=== PATIENT | female | born 1940 | race Caucasian/White ===

== ENCOUNTER 2024-04-11 15:26 | Emergency (ER) | payer MEDICARE, MEDICAID, SELFPAY ==
[2024-04-11] VITALS (15 sets, daily range): BP systolic 143–186; BP diastolic 61–88; PULSE 70–84; RESP 16–20; TEMP 36.8; O2SAT 95–98; BMI 31.4
--- NOTE | 2024-04-11 15:29 | ED_ITS ---
<Statement entered by Adrian Moeller MD - 04/11/24 21:09> I was consulted by the AR, and we discussed the complexity of the problems being addressed. I approved the treatment and management plan for this patient's care in the emergency department, thus performing a substantive portion of the medical decision making. Adrian Moeller MD Discharge Plan Disposition Patient Disposition: Xfer SNF Condition: Fair Prescriptions Prescriptions: No Action torsemide 20 mg tablet 20 mg PO DAILY Patient Comments: TAKE ONE TABLET BY MOUTH ONCE DAILY DIRECTED meloxicam 7.5 mg tablet 7.5 mg PO DAILY Patient Comments: TAKE ONE TABLET BY MOUTH ONCE DAILY amlodipine 5 mg tablet 5 mg PO DAILY Patient Comments: TAKE ONE TABLET BY MOUTH EVERY MORNING metformin 1,000 mg tablet 1,000 mg PO BID Qty: 180 3RF acetaminophen 500 mg capsule 500 mg PO Q6H PRN (Reason: fever or pain) 90 Days Qty: 90 0RF Gaviscon 95-358 mg/15 mL suspension 30 ml PO QPCHS MDD every 6 hours as needed Qty: 355 0RF loperamide 2 mg capsule 2 mg PO QID PRN (Reason: loose stool) Qty: 90 0RF GlucaGen HypoKit 1 mg recon soln 1 mg SQ Q20M MDD NEEDED PRN (Reason: hypoglycemia) Qty: 1 0RF Rx Instructions: until target blood sugar attained lactulose 10 gram/15 mL (15 mL) solution 30 ml PO DAILY PRN (Reason: constipation) Qty: 600 2RF aspirin [Aspirin Childrens] 81 mg tablet,chewable 81 mg PO DAILY Qty: 30 2RF buspirone 5 mg tablet 5 mg PO BID Qty: 60 2RF atorvastatin 80 mg tablet 80 mg PO HS Qty: 30 2RF carbidopa-levodopa 25-100 mg tablet 1 tab PO BID Patient Comments: TAKE ONE TABLET THREE TIMES DAILY carvedilol 6.25 mg tablet 6.25 mg PO BID Qty: 60 2RF Rx Instructions: must administer with a meal/food clopidogrel 75 mg tablet 75 mg PO DAILY Qty: 30 2RF celecoxib 100 mg capsule 100 mg PO DAILY Qty: 60 2RF pantoprazole 40 mg tablet,delayed release (DR/EC) 40 mg PO DAILY Qty: 30 2RF spironolactone 25 mg tablet 25 mg PO DAILY Qty: 90 3RF insulin glargine [Lantus Solostar U-100 Insulin] 100 unit/mL (3 mL) insulin pen 35 unit SQ HS Qty: 15 2RF gabapentin 600 mg tablet 600 mg PO TID Qty: 90 2RF Referrals Follow up/Referrals: Provider,Referral, [Primary Care Provider] - See instructions Activity Restrictions/Add. Instructions Additional Instructions/Restrictions: I recommend a referral to neurology for full evaluation/reevaluation of your features. Please follow-up with your PCP as soon as possible. Return to ER for any worsening signs or symptoms. Clinical Impressions Clinical Impression: Dyskinesia due to Parkinson disease Discharge ED Provider: Adrian Moeller General Adult HPI <LISSETH Odonnell - Last Filed: 04/11/24 20:56> General Chief complaint: Recheck/Abnormal Lab/Rx Stated complaint: tremors Time Seen by Provider: 04/11/24 15:29 History of Present Illness HPI narrative: Patient presents for fdc for evaluation of tremors. Patient possibly had a medication overdose with gabapentin and thus initially that was the reason for transfer. The overdose would have been getting the morning and midday doses of her gabapentin at the same time. But patient was also noted to have gross tremors fortunately we do not know what her normal baseline is. She does not have fine tremors they are actually more gross motor intention tremors and she is taking carbidopa levodopa as well as she is an insulin-dependent type 2 diabetic. Patient herself denies chest pain fever chills hemoptysis hematochezia melena nausea vomit diarrhea Related Data Home Medications Medication Instructions Recorded Confirmed amlodipine 5 mg tablet 5 mg PO DAILY 07/02/22 04/04/24 meloxicam 7.5 mg tablet 7.5 mg PO DAILY 07/02/22 04/04/24 torsemide 20 mg tablet 20 mg PO DAILY 07/02/22 04/04/24 carbidopa 25 mg-levodopa 100 mg 1 tab PO BID 02/09/24 04/04/24 tablet Previous Rx's Medication Instructions Recorded metformin 1,000 mg tablet 1,000 mg PO BID #180 tabs 02/01/24 acetaminophen 500 mg capsule 500 mg PO Q6H PRN fever or pain 90 02/09/24 days #90 caps aluminum hydrox-magnesium carb 95 30 ml PO QPCHS #355 mL 02/09/24 mg-358 mg/15 mL oral suspension (Gaviscon) aspirin 81 mg chewable tablet 81 mg PO DAILY #30 tabs 02/09/24 (Aspirin Childrens) atorvastatin 80 mg tablet 80 mg PO HS #30 tabs 02/09/24 buspirone 5 mg tablet 5 mg PO BID #60 tabs 02/09/24 carvedilol 6.25 mg tablet 6.25 mg PO BID #60 tabs 02/09/24 celecoxib 100 mg capsule 100 mg PO DAILY #60 caps 02/09/24 clopidogrel 75 mg tablet 75 mg PO DAILY #30 tabs 02/09/24 glucagon 1 mg solution for 1 mg SQ Q20M PRN hypoglycemia #1 ea 02/09/24 injection (GlucaGen HypoKit) lactulose 10 gram/15 mL (15 mL) 30 ml PO DAILY PRN constipation 02/09/24 oral solution #600 mL loperamide 2 mg capsule 2 mg PO QID PRN loose stool #90 02/09/24 caps pantoprazole 40 mg tablet,delayed 40 mg PO DAILY #30 tabs 02/09/24 release spironolactone 25 mg tablet 25 mg PO DAILY #90 tabs 02/22/24 insulin glargine 100 unit/mL (3 35 unit (0.35 mL) SQ HS #15 mL 03/14/24 mL) subcutaneous pen (Lantus Solostar U-100 Insulin) gabapentin 600 mg tablet 600 mg PO TID #90 tabs 03/21/24 Allergies Allergy/AdvReac Type Severity Reaction Status Date / Time No Known Allergies Allergy Verified 04/04/24 16:53 [facility] <LISSETH Odonnell - Last Filed: 04/11/24 20:56> [facility] Disclaimer: The information contained in this section may have been updated after the patient was seen, as this information can be updated by other users. Medical History Cerebrovascular accident (CVA) Parkinsons disease Hyperlipidemia CAD (coronary artery disease) Arthritis T2DM (type 2 diabetes mellitus) HTN (hypertension), benign Family History Other Cancer Social History Smoking Status: Current every day smoker alcohol intake: never current occupational status: retired Travel in the last 8 weeks: None <LISSETH Odonnell - Last Filed: 04/11/24 20:56> ROS Obtained: Yes Systems reviewed as appropriate & no additional complaints except as documented Physical Exam <LISSETH Odonnell - Last Filed: 04/11/24 20:56> General General appearance: alert and in no apparent distress Eye Eye exam: Present normal appearance and EOMI ENT ENT exam: Present normal exam, normal oropharynx, mucous membranes moist and other (Patient has severe presbycusis) Neck Neck exam: Present normal inspection Respiratory Respiratory exam: Present normal lung sounds bilaterally Cardiovascular Cardiovascular exam: Present regular rate, normal rhythm and normal heart sounds Abdominal Exam Abdominal exam: Present soft and normal bowel sounds; Absent tenderness Extremities Exam Extremities exam: Present normal inspection and full ROM; Absent tenderness Back Exam Back exam: Present normal inspection and full ROM Neurological Exam Neurological exam: Present alert, oriented X3, CN II-XII intact and other (Patient has gross tremors infrequently in all 4 extremities they are not present constantly. Very much resemble spasticity) Psychiatric Psychiatric exam: Present normal affect and normal mood Skin Skin exam: Present warm, dry and normal color Medical Decision Making <LISSETH Odonnell - Last Filed: 04/11/24 20:56> Medical Records Medical records reviewed: Yes I reviewed the patient's medical records. Priyank Inquiry Pt receiving controlled substance: No Vital Signs: 04/11/24 15:26 04/11/24 17:00 04/11/24 17:30 Temperature 98.3 F Temperature Source Oral Pulse Rate 71 Pulse Rate [Right] 70 Respiratory Rate 20 Blood Pressure 143/61 H 160/74 H Blood Pressure [Right Arm] 149/72 H Blood Pressure Mean 88 89 Blood Pressure Mean [Right Arm] 97 Blood Pressure Source [Right Arm] Automatic Cuff 02 Sat by Pulse Oximetry 98 97 Oxygen Delivery Method Room Air 04/11/24 18:00 04/11/24 18:30 04/11/24 19:00 Temperature Temperature Source Pulse Rate 80 81 Pulse Rate [Right] Respiratory Rate Blood Pressure 162/73 H 153/73 H 150/68 H Blood Pressure [Right Arm] Blood Pressure Mean 86 86 82 Blood Pressure Mean [Right Arm] Blood Pressure Source [Right Arm] 02 Sat by Pulse Oximetry 95 95 Oxygen Delivery Method 04/11/24 19:30 04/11/24 20:00 04/11/24 20:30 Temperature Temperature Source Pulse Rate 83 83 81 Pulse Rate [Right] Respiratory Rate 18 16 18 Blood Pressure 150/67 H 158/75 H 161/77 H Blood Pressure [Right Arm] Blood Pressure Mean Blood Pressure Mean [Right Arm] Blood Pressure Source [Right Arm] 02 Sat by Pulse Oximetry 96 96 95 Oxygen Delivery Method Room Air Room Air Room Air Lab Data Lab results reviewed: Yes I reviewed the patient's lab results. Lab Results 04/11/24 15:30: WBC 6.0, RBC 3.59 L, Hgb 10.9 L, Hct 32.1 L, MCV 89.6, MCH 30.4, MCHC 33.9, RDW 15.1, Plt Count 318, MPV 7.8, Neut % (Auto) 67.5, Lymph % (Auto) 21.8, Pepin % (Auto) 5.9, Eos % (Auto) 4.3, Baso % (Auto) 0.5, Neut # (Auto) 4.1, Lymph # (Auto) 1.3, Pepin # (Auto) 0.4, Eos # (Auto) 0.3, Baso # (Auto) 0.0, Sodium 137, Potassium 5.1, Chloride 109 H, Carbon Dioxide 22, Anion Gap 11.1, B UN 20 H, Creatinine 1.00, Estimated Creat Clear 53, Estimated GFR 53 L, Est GFR ( Amer) 64, Glucose 303 H, Calcium 9.6, Magnesium 1.4 L, Total Bilirubin 0.3, AST 26, ALT 16, Alkaline Phosphatase 147 H, Total Creatine Kinase 38, Total Protein 6.9, Albumin 3.9, Globulin 3.0, Albumin/Globulin Ratio 1.3, TSH 2.76, F ree T4 Index 2.3 L, Thyroxine (T4) 7.2, T3 Uptake 32 04/11/24 15:30 04/11/24 15:30 Orders (Tests/Meds): ED MEDICATIONS Discontinued Medications Generic Name Dose Route Start Last Admin Trade Name Freq PRN Reason Stop Dose Admin Acetaminophen 1,000 mg 04/11/24 15:31 04/11/24 15:50 Acetaminophen 1,000mg/100ml Vial IV 04/11/24 15:32 1,000 mg ONCE ONE Administration Lactated Ringer's 1,000 mls @ 999 mls/hr 04/11/24 15:31 04/11/24 15:49 Lactated Ringer's 1000 Ml Bag IV 04/11/24 16:31 999 mls/hr .Q1H1M ONE Administration Magnesium Sulfate 2 gm in 50 mls @ 50 mls/hr 04/11/24 16:16 04/11/24 17:29 Magnesium Sulfate 2gm/50ml Premix IV 04/11/24 17:15 50 mls/hr ONCE ONE Administration Ketorolac Tromethamine 15 mg 04/11/24 15:31 04/11/24 15:50 Ketorolac 30mg/Ml Vial IV 04/11/24 15:32 15 mg ONCE ONE Administration ORDERS Category Date Time Status CT chest wo con Stat Cat Scan 04/11/24 18:[address] facial bones wo con Stat Cat Scan 04/11/24 18:[address] head/brain wo con Stat Cat Scan 04/11/24 15:[address] soft tissue neck wo con Stat Cat Scan 04/11/24 18:42 Completed CBC w/Auto Diff [Complete Blood Count Auto Diff] Stat Lab 04/11/24 15:30 Completed CK [Creatine Kinase] Stat Lab 04/11/24 15:30 Completed CMP [Comprehensive Metabolic Panel] Stat Lab 04/11/24 15:30 Completed Magnesium Stat Lab 04/11/24 15:30 Completed Thyroid Panel Stat Lab 04/11/24 15:30 Completed Medical Decision Narrative: In summary patient is a 83-year-old female who presents to the emergency department for evaluation of muscle spasms/tremors. Patient is hemodynamically stable upon arrival, afebrile. Physical exam is remarkable for intermittent gross extremity jerking motions but no fine motor tremors noted. No focal neurologic deficits.. Differential diagnosis includes electrolyte imbalance versus parkinsonism versus tardive dyskinesia etc. Initial workup will be conducted with hematologic labs CT scan. Initial interventions include crystalloid bolus Toradol Tylenol. Initial workup reviewed by me shows TSH of 2.76 with a free T4 of 2.[address] scan of the head is remarkable via my informal interpretation of subcutaneous air around the face but not anywhere in the cranium. Repeat imaging of face neck and chest shows no subcutaneous air according to the radiologist or mediastinal air.. Upon repeat evaluation patient still has dyskinesia on intentional movements all 4 extremities but [place] Coma Score remains 15. Given this patient is appropriate for discharge back to the [facility] <Adrian Moeller MD - Last Filed: 04/11/24 19:02> Vital Signs: 04/11/24 15:26 04/11/24 17:00 04/11/24 17:30 Temperature 98.3 F Temperature Source Oral Pulse Rate 71 Pulse Rate [Right] 70 Respiratory Rate 20 Blood Pressure 143/61 H 160/74 H Blood Pressure [Right Arm] 149/72 H Blood Pressure Mean 88 89 Blood Pressure Mean [Right Arm] 97 Blood Pressure Source [Right Arm] Automatic Cuff 02 Sat by Pulse Oximetry 98 97 Oxygen Delivery Method Room Air 04/11/24 18:00 04/11/24 18:30 04/11/24 19:00 Temperature Temperature Source Pulse Rate 80 81 Pulse Rate [Right] Respiratory Rate Blood Pressure 162/73 H 153/73 H 150/68 H Blood Pressure [Right Arm] Blood Pressure Mean 86 86 82 Blood Pressure Mean [Right Arm] Blood Pressure Source [Right Arm] 02 Sat by Pulse Oximetry 95 95 Oxygen Delivery Method 04/11/24 19:30 04/11/24 20:00 04/11/24 20:30 Temperature Temperature Source Pulse Rate 83 83 81 Pulse Rate [Right] Respiratory Rate 18 16 18 Blood Pressure 150/67 H 158/75 H 161/77 H Blood Pressure [Right Arm] Blood Pressure Mean Blood Pressure Mean [Right Arm] Blood Pressure Source [Right Arm] 02 Sat by Pulse Oximetry 96 96 95 Oxygen Delivery Method Room Air Room Air Room Air Lab Data Lab Results 04/11/24 15:30: WBC 6.0, RBC 3.59 L, Hgb 10.9 L, Hct 32.1 L, MCV 89.6, MCH 30.4, MCHC 33.9, RDW 15.1, Plt Count 318, MPV 7.8, Neut % (Auto) 67.5, Lymph % (Auto) 21.8, Pepin % (Auto) 5.9, Eos % (Auto) 4.3, Baso % (Auto) 0.5, Neut # (Auto) 4.1, Lymph # (Auto) 1.3, Pepin # (Auto) 0.4, Eos # (Auto) 0.3, Baso # (Auto) 0.0, Sodium 137, Potassium 5.1, Chloride 109 H, Carbon Dioxide 22, Anion Gap 11.1, B UN 20 H, Creatinine 1.00, Estimated Creat Clear 53, Estimated GFR 53 L, Est GFR ( Amer) 64, Glucose 303 H, Calcium 9.6, Magnesium 1.4 L, Total Bilirubin 0.3, AST 26, ALT 16, Alkaline Phosphatase 147 H, Total Creatine Kinase 38, Total Protein 6.9, Albumin 3.9, Globulin 3.0, Albumin/Globulin Ratio 1.3, TSH 2.76, F ree T4 Index 2.3 L, Thyroxine (T4) 7.2, T3 Uptake 32 Orders (Tests/Meds): ED MEDICATIONS Discontinued Medications Generic Name Dose Route Start Last Admin Trade Name Trish PRN Reason Stop Dose Admin Acetaminophen 1,000 mg 04/11/24 15:31 04/11/24 15:50 Acetaminophen 1,000mg/100ml Vial IV 04/11/24 15:32 1,000 mg ONCE ONE Administration Lactated Ringer's 1,000 mls @ 999 mls/hr 04/11/24 15:31 04/11/24 15:49 Lactated Ringer's 1000 Ml Bag IV 04/11/24 16:31 999 mls/hr .Q1H1M ONE Administration Magnesium Sulfate 2 gm in 50 mls @ 50 mls/hr 04/11/24 16:16 04/11/24 17:29 Magnesium Sulfate 2gm/50ml Premix IV 04/11/24 17:15 50 mls/hr ONCE ONE Administration Ketorolac Tromethamine 15 mg 04/11/24 15:31 04/11/24 15:50 Ketorolac 30mg/Ml Vial IV 04/11/24 15:32 15 mg ONCE ONE Administration ORDERS Category Date Time Status CT chest wo con Stat Cat Scan 04/11/24 18:[address] facial bones wo con Stat Cat Scan 04/11/24 18:[address] head/brain wo con Stat Cat Scan 04/11/24 15:[address] soft tissue neck wo con Stat Cat Scan 04/11/24 18:42 Completed CBC w/Auto Diff [Complete Blood Count Auto Diff] Stat Lab 04/11/24 15:30 Completed CK [Creatine Kinase] Stat Lab 04/11/24 15:30 Completed CMP [Comprehensive Metabolic Panel] Stat Lab 04/11/24 15:30 Completed Magnesium Stat Lab 04/11/24 15:30 Completed Thyroid Panel Stat Lab 04/11/24 15:30 Completed ECG Data Tracing #1: Independently interpreted by me rate is 81, rhythm is regular, axis is normal, no ST elevation in anatomical contiguous leads, QTc 437 Critical Care <LISSETH Odonnell - Last Filed: 04/11/24 20:56> Critical Care Time Critical Care Time: No
[2024-04-11 15:43] LABS: Basophils % 0.5 % (0.1-2.0); Eosinophils # 0.3 K/mm3 (0.0-0.4); Eosinophils % 4.3 % (0.1-12.0); Hematocrit 32.1 % (37.0-47.0); Hemoglobin 10.9 g/dL (12.2-16.2); Lymphocytes # 1.3 K/mm3 (0.7-4.5); Lymphocytes % 21.8 % (10-50); Mean Corpuscular HGB Conc 33.9 g/dL (31.8-35.4); Mean Corpuscular Hemoglobin 30.4 pg (27.0-31.2); Mean Corpuscular Volume 89.6 fl (81-99); Mean Platelet Volume 7.8 fl (7.4-10.4); Monocytes # 0.4 K/mm3 (0.1-1.0); Monocytes % 5.9 % (1.7-9.3); Neutrophils # 4.1 K/mm3 (1.8-7.8); Neutrophils % 67.5 % (37.0-80.0); Platelet Count 318 K/mm3 (142-424); Red Blood Count 3.59 M/mm3 (4.20-5.40); Red Cell Distribution Width 15.1 % (11.5-17.5)
[2024-04-11] MEDS: LACTATED RINGERS 1000ML 1,000 ML 999 ML IV (15:49)
[2024-04-11] MEDS: ACETAMINOPHEN 1,000MG/100ML VIAL 1000 MG IV (15:50)
[2024-04-11] MEDS: KETOROLAC 30MG/ML VIAL 15 MG IV (15:50)
--- NOTE | 2024-04-11 15:56 | CT_ITS ---
FINAL REPORT CLINICAL HISTORY: Tremors FINDINGS: Axial images of the head were obtained without contrast. Coronal reformatted images were also obtained. This study was performed with techniques to keep radiation doses as low as reasonably achievable (ALARA). Individualized dose reduction techniques using automated exposure control or adjustment of mA and/or kV according to the patient''s size were employed. There is generalized age-appropriate atrophy. Periventricular low-attenuation areas are seen consistent with mild chronic ischemic changes. There is no evidence of intracranial hemorrhage or mass. There is no evidence of acute infarct. There is no evidence of shift of the midline structures. No skull abnormality is seen on the bone window images. There is left and anterior face soft tissue air of uncertain etiology but can be seen with penetrating injury. IMPRESSION: Atrophy and mild periventricular chronic ischemic changes. No acute intracranial abnormality identified. Soft tissue air as detailed above. Recommend clinical correlation. Reviewed, Interpreted and Dictated by Victor Hugo Loving III, MD Transcribed by Marlen Aguilar Authenticated and . [facility]
[2024-04-11 16:08] LABS: Chloride 109 mmol/L (98-107); Sodium 137 mmol/L (136-145)
[2024-04-11 16:09] LABS: Potassium 5.1 mmoL/L (3.5-5.1)
[2024-04-11 16:11] LABS: Alanine Aminotransferase 16 U/L (12-78); Albumin Level 3.9 g/dl (3.5-5.0); Albumin/Globulin Ratio 1.3 (1.1-1.8); Alkaline Phosphatase 147 U/L (38-126); Anion Gap 11.1 mEq/L (5-15); Aspartate Amino Transferase 26 U/L (14-36); Bilirubin,Total 0.3 mg/dl (0.2-1.3); Blood Urea Nitrogen 20 mg/dl (7-17); Calcium 9.6 mg/dl (8.4-10.2); Carbon Dioxide 22 mmol/L (22.0-30.0); Creatine Kinase 38 U/L (30-135); Creatinine Clearance Estimated 53 mL/min (50-200); Estimated Glomerular Filt Rate 53 ml/min (>60); GFR (African American) 64 ML/MIN (>60); Glucose 303 mg/dl (74-100); Total Protein,Serum 6.9 g/dl (6.3-8.2)
[2024-04-11 16:12] LABS: Magnesium 1.4 mg/dl (1.6-2.3)
[2024-04-11 16:42] LABS: Free Thyroxine Index 2.3 ug/dL (5.93-13.13); T4 (Thyroxine) 7.2 ug/dl (5.53-11.0); Triiodothryronine (T3) Uptake 32 % (23.5-40.5)
[2024-04-11 16:56] LABS: Thyroid Stimulating Hormone 2.76 uIU/mL (0.465-4.68)
[2024-04-11] MEDS: MAGNESIUM SULFATE IN WATER 2 GM/50 ML PIGGYBACK IV (17:29)
--- NOTE | 2024-04-11 18:42 | CT_ITS ---
PROCEDURE INFORMATION: Exam: CT Chest Without Contrast; Diagnostic Exam date and time: 04/11/2024 7:13 PM Age: 83 years old Clinical indication: Other: Subcutaneous air TECHNIQUE: Imaging protocol: Diagnostic computed tomography of the chest without contrast. Radiation optimization: All CT scans at this facility use at least one of these dose optimization techniques: automated exposure control; mA and/or kV adjustment per patient size (includes targeted exams where dose is matched to clinical indication); or iterative reconstruction. COMPARISON: CT SOFT TISSUE NECK WO CON 04/11/2024 7:11 PM FINDINGS: Lungs: Calcified granuloma within the right lower lobe. Minimal bibasilar atelectasis or scarring. No focal consolidations. Pleural spaces: Unremarkable. No pneumothorax. No pleural effusion. Heart: Normal. Coronary arteries: Moderate three-vessel coronary artery atherosclerotic calcification. Lymph nodes: Calcified right hilar lymph nodes, compatible with prior granulomatous disease. Vasculature: Atherosclerotic disease of the thoracic aorta, without aneurysm. Diaphragm: Small-sized hiatal hernia. Gallbladder and biliary ducts: Gallbladder surgically absent. Spleen: Splenic calcifications, compatible with prior granulomatous disease. Adrenal glands: 2 cm benign left adrenal adenoma. Kidneys and ureters: Partially visualized simple right renal cysts. Bones/joints: Degenerative changes of the acromioclavicular and glenohumeral joints, with joint space narrowing minimal osteophyte formation. Multilevel thoracic spine degenerative disc space narrowing and osteophyte formation. Soft tissues: Normal. IMPRESSION: 1. No acute thoracic abnormality. 2. No subcutaneous gas. COMMENTS: 1. Consistent with the [employer]'s Incidental Findings Committee white paper (J Am Reed Radiol 2017): For any incidental adrenal lesion greater than or equal to 1 cm but less than or equal to 4 cm classified in this report as benign, likely benign, or containing fat (including classification as an adenoma or myelolipoma), no follow-up imaging is recommended per consensus recommendations based on imaging criteria. Further lab evaluation could be pursued if warranted based on clinical findings. 2. Consistent with the [employer]'s Incidental Findings Committee white paper (J Am Reed Radiol 2018): Any incidental renal lesion less than 1 cm or classified as too small to characterize, or any incidental cystic renal lesion characterized as simple-appearing, is likely benign. No follow-up imaging is recommended for these lesions per consensus recommendations based on imaging criteria.
--- NOTE | 2024-04-11 18:42 | CT_ITS ---
PROCEDURE INFORMATION: Exam: CT Neck Without Contrast Exam date and time: 04/11/2024 7:11 PM Age: 83 years old Clinical indication: Other: Subcutaneous air TECHNIQUE: Imaging protocol: Computed tomography of the neck without contrast. Radiation optimization: All CT scans at this facility use at least one of these dose optimization techniques: automated exposure control; mA and/or kV adjustment per patient size (includes targeted exams where dose is matched to clinical indication); or iterative reconstruction. COMPARISON: CT FACIAL BONES WO CON 04/11/2024 7:06 PM FINDINGS: Salivary glands: Normal. Glands are normal in size. Pharynx: Unremarkable. No significant tonsillar enlargement. Prevertebral and retropharyngeal spaces: Unremarkable. Larynx: Unremarkable. Epiglottis is normal. Thyroid: Normal. No enlarged or calcified nodules. Trachea: Visualized trachea is unremarkable. Lungs: Unremarkable as visualized. Lymph nodes: Unremarkable. No lymphadenopathy. Bones/joints: Unremarkable. No acute fracture. Soft tissues: Unremarkable. No significant soft tissue swelling. IMPRESSION: No acute findings. No subcutaneous gas is identified
--- NOTE | 2024-04-11 18:42 | CT_ITS ---
PROCEDURE INFORMATION: Exam: CT Maxillofacial Without Contrast Exam date and time: 04/11/2024 7:06 PM Age: 83 years old Clinical indication: Other: Subcutaneous air TECHNIQUE: Imaging protocol: Computed tomography of the face without contrast. Radiation optimization: All CT scans at this facility use at least one of these dose optimization techniques: automated exposure control; mA and/or kV adjustment per patient size (includes targeted exams where dose is matched to clinical indication); or iterative reconstruction. COMPARISON: CT HEAD/BRAIN WO CON 04/11/2024 4:29 PM FINDINGS: Orbital cavities: Orbits are normal. Globes are unremarkable. Paranasal sinuses: Normal. No air-fluid levels. Bones: No acute fracture. Soft tissues: Unremarkable. IMPRESSION: No acute findings.
--- NOTE | 2024-04-11 18:54 | ECG_ITS ---
APPROVED REPORT Exam: Resting ECG HR:81 bpm ECG Measurements Heart Rate 81 AXES QRSd 126 QRS -84 QT 400 T 57 QTc 437 Conclusion Sinus tachycardia RIGHT BUNDLE BRANCH BLOCK [120+ ms QRS DURATION, UPRIGHT V1, 40+ ms S IN I/aVL/V4/V5/V6] LEFT ANTERIOR FASCICULAR BLOCK [QRS AXIS <= -45, QR IN I, RS IN II] ABNORMAL ECG Electronically signed by : ADONIS CARPENTER, 04/12/2024 08:03:52
--- NOTE | 2024-04-11 19:42 | PC.NURSE ---
rounded on pt at this time. pt given warm blanket. no other needs voiced.
--- NOTE | 2024-04-11 20:22 | PC.NURSE ---
rounded on pt at this time. pt voices no needs
[2024-04-11] MEDS: GABAPENTIN 300MG CAPSULE 600 MG PO (22:32)
[2024-04-11] MEDS: ACETAMINOPHEN 500MG TAB 1000 MG PO (22:32)
--- NOTE | 2024-04-11 23:37 | PC.NURSE ---
rounded on pt at this time. pt voices no needs
[2024-04-12] VITALS: BP 156/74; PULSE 67; O2SAT 96
--- NOTE | 2024-04-12 00:16 | PC.NURSE ---
rounded on pt, pt sleeping at this time .
--- NOTE | 2024-04-12 00:20 | PC.NURSE ---
[facility] EMS back in [facility], and aware of pt needing transfer back to [facility].
[2024-04-12 00:30] VITALS: BP 176/78; PULSE 75; O2SAT 94
[2024-04-12 00:55] VITALS: BP 176/78; PULSE 75; RESP 17; TEMP 36.9; O2SAT 93
== END 2024-04-12 00:56 ==
PROVIDERS: Physician Assistant; Emergency Provider Emergency Medicine
DX: G20.B1 Parkinson's disease with dyskinesia, without mention of fluctuations (principal); E11.65 Type 2 diabetes mellitus with hyperglycemia; F17.210 Nicotine dependence, cigarettes, uncomplicated; I11.9 Hypertensive heart disease without heart failure; I25.10 Atherosclerotic heart disease of native coronary artery without angina pectoris; E78.5 Hyperlipidemia, unspecified; Z86.73 Personal history of transient ischemic attack (TIA), and cerebral infarction without residual deficits; Z79.4 Long term (current) use of insulin; Z79.84 Long term (current) use of oral hypoglycemic drugs; E83.42 Hypomagnesemia
CPT/HCPCS: 70450; 70486; 70490; 71250; 80053; 82550; 83735; 84436; 84443; 84479; 85025; 93005; 96365; 96375; 99285; J0131; J1885; J3475; J7120

== ENCOUNTER 2024-06-07 20:10 | Outpatient (CLI) | payer MEDICARE, SELFPAY ==
[2024-06-07 20:23] LABS: Basophils # 0.1 K/mm3 (0-0.2); Basophils % 0.7 % (0.1-2.0); Eosinophils # 0.1 K/mm3 (0.0-0.4); Hematocrit 35.2 % (37.0-47.0); Lymphocytes # 0.9 K/mm3 (0.7-4.5); Lymphocytes % 12.6 % (10-50); Mean Corpuscular HGB Conc 31.3 g/dL (31.8-35.4); Mean Corpuscular Hemoglobin 29.2 pg (27.0-31.2); Mean Corpuscular Volume 93.3 fl (81-99); Mean Platelet Volume 7.9 fl (7.4-10.4); Monocytes # 0.6 K/mm3 (0.1-1.0); Monocytes % 8.4 % (1.7-9.3); Neutrophils # 5.6 K/mm3 (1.8-7.8); Neutrophils % 76.4 % (37.0-80.0); Platelet Count 313 K/mm3 (142-424); Red Blood Count 3.77 M/mm3 (4.20-5.40); Red Cell Distribution Width 14.4 % (11.5-17.5); White Blood Count 7.3 K/mm3 (4.8-10.8)
[2024-06-07 21:00] LABS: Albumin Level 3.8 g/dl (3.5-5.0); Chloride 106 mmol/L (98-107); Potassium 4.4 mmoL/L (3.5-5.1); Sodium 137 mmol/L (136-145)
[2024-06-07 21:03] LABS: Alanine Aminotransferase 16 U/L (12-78); Albumin/Globulin Ratio 1.4 (1.1-1.8); Alkaline Phosphatase 119 U/L (38-126); Anion Gap 9.4 mEq/L (5-15); Aspartate Amino Transferase 26 U/L (14-36); Bilirubin,Total 0.4 mg/dl (0.2-1.3); Blood Urea Nitrogen 25 mg/dl (7-17); Carbon Dioxide 26 mmol/L (22.0-30.0); Estimated Glomerular Filt Rate 43 ml/min (>60); GFR (African American) 52 ML/MIN (>60); Globulin 2.8 g/dL (1.3-3.2); Total Protein,Serum 6.6 g/dl (6.3-8.2)
[2024-06-07 21:04] LABS: Calcium 9.3 mg/dl (8.4-10.2); Glucose 197 mg/dl (74-100)
== END 2024-06-07 23:59 | disposition home or self-care (01) ==
LOC: LAB.DROPOF 20:13
PROVIDERS: PCP Family Medicine; Visit Provider Family Medicine
DX: E11.9 Type 2 diabetes mellitus without complications (principal); I69.351 Hemiplegia and hemiparesis following cerebral infarction affecting right dominant side; R13.12 Dysphagia, oropharyngeal phase; E78.5 Hyperlipidemia, unspecified; I10 Essential (primary) hypertension
CPT/HCPCS: 80053; 85025

== ENCOUNTER 2024-08-18 10:18 | Outpatient (CLI) | payer MEDICARE, SELFPAY ==
--- NOTE | 2024-08-18 10:22 | CA_ITS ---
FINAL REPORT TECHNIQUE: Color Doppler, duplex Doppler and akins scale sonography of the bilateral neck vasculature was performed. Velocities were measured in the carotid arteries. Stenosis evaluation based on velocity criteria. CLINICAL HISTORY: DIZZINESS, COMPARISON: None FINDINGS: The peak systolic velocity of the right common carotid artery is 85 cm/sec and internal carotid artery 95 cm/sec. The diastolic velocity in the internal carotid artery is 22 cm/sec. The ICA/CCA ratio is 1.2. Visually, a small amount of plaque is seen. These findings are consistent with less than 50% stenosis. The external carotid artery is patent. The right vertebral artery is patent with antegrade flow. The peak systolic velocity of the left common carotid artery is 79 cm/sec and internal carotid artery 183 cm/sec. The diastolic velocity in the internal carotid artery is 27 cm/sec. The ICA/CCA ratio is 2.6. Visually, a moderate amount of plaque is seen. These findings are consistent with less than 50% stenosis. The external carotid artery is patent. The left vertebral artery is patent with antegrade flow. IMPRESSION: 50 to 69% stenosis of the left carotid artery. Less than 50% stenosis of the right carotid artery. Antegrade flow in the vertebral arteries bilaterally. If indicated, CTA or catheter angiography could further evaluate. Reviewed, Interpreted and Dictated by Victor Hugo Loving III, MD Transcribed by Zahra Nash Authenticated and [facility]
== END 2024-08-18 23:59 | disposition home or self-care (01) ==
LOC: RT 10:19
PROVIDERS: PCP Family Medicine; Visit Provider Nurse Practitioner Family
DX: R42 Dizziness and giddiness (principal); I11.9 Hypertensive heart disease without heart failure; I25.10 Atherosclerotic heart disease of native coronary artery without angina pectoris
CPT/HCPCS: 93880

== ENCOUNTER 2024-12-25 08:31 | Outpatient (CLI) | payer MEDICARE, MEDICAID, SELFPAY ==
[2024-12-25 08:57] LABS: Glucose,Fasting 75 mg/dl (74-100)
== END 2024-12-25 23:59 | disposition home or self-care (01) ==
LOC: LAB.DROPOF 08:32
PROVIDERS: PCP Family Medicine; Visit Provider Family Medicine
DX: E11.9 Type 2 diabetes mellitus without complications (principal)
CPT/HCPCS: 36415; 82947

== ENCOUNTER 2025-01-22 07:23 | Outpatient (CLI) | payer MEDICARE, MEDICAID, SELFPAY ==
[2025-01-22 07:41] LABS: Basophils # 0.1 K/mm3 (0-0.2); Basophils % 0.6 % (0.1-2.0); Eosinophils # 1.1 Kmm3 (0.0-0.4); Eosinophils % 12.9 % (0.1-12.0); Hematocrit 30.1 % (37.0-47.0); Hemoglobin 9.3 g/dL (12.2-16.2); Lymphocytes # 1.5 K/mm3 (0.7-4.5); Lymphocytes % 17.6 % (10-50); Mean Corpuscular HGB Conc 30.9 g/dL (31.8-35.4); Mean Corpuscular Hemoglobin 24.5 pg (27.0-31.2); Mean Corpuscular Volume 79.4 fl (81-99); Mean Platelet Volume 8.6 fl (7.4-10.4); Monocytes # 0.6 K/mm3 (0.1-1.0); Monocytes % 7.5 % (1.7-9.3); Neutrophils # 5.1 K/mm3 (1.8-7.8); Neutrophils % 60.6 % (37.0-80.0); Nucleated Red Blood Cells # 0 10^3/uL; Nucleated Red Blood Cells % 0 %; Platelet Count 291 K/mm3 (142-424); Red Blood Count 3.79 M/mm3 (4.20-5.40); Red Cell Distribution Width 15.4 % (11.5-17.5); Red Cell Distribution Width-SD 44.1 fL; White Blood Count 8.4 K/mm3 (4.8-10.8)
[2025-01-22 08:24] LABS: Alanine Aminotransferase 10 U/L (12-78); Albumin Level 3.1 g/dl (3.5-5.0); Alkaline Phosphatase 109 U/L (38-126); Anion Gap 13.6 mEq/L (5-15); Aspartate Amino Transferase 20 U/L (14-36); Bilirubin,Total 0.2 mg/dl (0.2-1.3); Blood Urea Nitrogen 22 mg/dl (7-17); Calcium 9.2 mg/dl (8.4-10.2); Carbon Dioxide 23 mmol/L (22.0-30.0); Chloride 107 mmol/L (98-107); Chol/HDL Ratio 2.8 (1-3.5); Cholesterol 147 mg/dl (140-200); Estimated Glomerular Filt Rate 53 ml/min (>60); GFR (African American) 64 ML/MIN (>60); Glucose 130 mg/dl (74-100); HDL Cholesterol 53 mg/dl (40-60); Potassium 4.6 mmoL/L (3.5-5.1); Sodium 139 mmol/L (136-145); Total Protein,Serum 6.1 g/dl (6.3-8.2); Triglycerides 159 mg/dl (30-150); VLDL Cholesterol 32 mg/dL (0-40)
[2025-01-22 08:35] LABS: Direct LDL Cholesterol 50.53 mg/dL (100-129)
[2025-01-22 09:55] LABS: Hemoglobin A1C 7.8 % (4.0-6.0)
== END 2025-01-22 23:59 | disposition home or self-care (01) ==
PROVIDERS: PCP Family Medicine; Visit Provider Family Medicine
DX: E11.9 Type 2 diabetes mellitus without complications (principal); D64.9 Anemia, unspecified
CPT/HCPCS: 36415; 80053; 80061; 83036; 85025

== ENCOUNTER 2025-01-24 07:20 | Outpatient (CLI) | payer MEDICARE, MEDICAID, SELFPAY ==
[2025-01-24 07:56] LABS: Iron 34 ug/dL (37-170)
[2025-01-24 08:07] LABS: Total Iron Binding Capacity 392 ug/dL (265-497)
[2025-01-24 08:30] LABS: Ferritin 8.44 ng/ml (11.1-264)
== END 2025-01-24 23:59 | disposition home or self-care (01) ==
PROVIDERS: PCP Nurse Practitioner Family; Visit Provider Nurse Practitioner Family
DX: D64.9 Anemia, unspecified (principal)
CPT/HCPCS: 36415; 82728; 83540; 83550

== ENCOUNTER 2025-04-18 07:54 | Outpatient (CLI) | payer MEDICARE, MEDICAID, SELFPAY ==
--- OUTSIDE RECORDS SUMMARY | 2025-04-18 07:57 | XMS_ITS | Clinical Summary ---
Author Organization [facility] Address [address] [place] [address] Phone Care Team Providers Care Undergraduate Internship Name Role Phone Unavailable Primary Care Provider Unavailabl e Medications * This document contains information received from the source organization and may not represent a complete record from that organization. 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) Type 2 diabetes mellitus without complications ( HCC) Mixed hyperlipidemia Essential (primary) hypertension GERD (gastroesophageal reflux disease) Primary pulmonary hypertension (HCC) Social History Tobacco Use Types Packs/Day Years Used Date Smoking Tobacco: Former Cigarettes Tobacco Cessation:Counseling Given: Not Answered Alcohol Use Standard Drinks/Week Comments Never 0 (1 standard drink = 0.6 oz pur e alcohol) Comments Unknown Sex and Gender Information Value Date Recorded Sex Assigned at Not on file Legal Sex Female 3:03 PM EDT Gender Identity Not on file Sexual Orientation Not on file Obstetrics History Plan of Treatment Health Maintenance Due Date Last Done Comments Wellness Exam Medicare 1945 DTaP/TDaP/Td (1 - Tdap) 1961 Pneumococcal Vaccine 50+ (1 of 1 - PCV) 1992 Zoster (1 of 2) 1992 Bone Density Screening 2007 RSV or 60+ (1 - 1-d ose 75+ series) 2017 COVID-19 Vaccine ( - 2023-2 5 season) 2024 Influenza Vaccine (#1) 2025 Hepatitis B Vaccine Aged Out No longe r eligible based on patient's age to complete this topic Meningococcal B Vaccine Aged Out No l onger eligible based on patient's age to complete this topic Insurance [facility] KAI Rader [id number] MEDICARE [place] PART A AND B
[2025-04-18 08:41] LABS: Anion Gap 17.8 mEq/L (5-15); Blood Urea Nitrogen 39 mg/dl (7-17); Calcium 10.3 mg/dl (8.4-10.2); Carbon Dioxide 23 mmol/L (22.0-30.0); Chloride 102 mmol/L (98-107); Creatinine,Serum 1.30 mg/dl (0.52-1.04); Estimated Glomerular Filt Rate 39 ml/min (>60); GFR (African American) 47 ML/MIN (>60); Glucose 128 mg/dl (74-100); Potassium 4.8 mmoL/L (3.5-5.1); Sodium 138 mmol/L (136-145)
[2025-04-18 10:19] LABS: Hemoglobin A1C 9.6 % (4.0-6.0)
[2025-04-18 10:53] LABS: Hematocrit 37.8 % (37.0-47.0); Hemoglobin 12.5 g/dL (12.2-16.2); Immature Granulocytes % 1.4 %; Mean Corpuscular HGB Conc 33.1 g/dL (31.8-35.4); Mean Corpuscular Hemoglobin 27.8 pg (27.0-31.2); Mean Corpuscular Volume 84.2 fl (81-99); Nucleated Red Blood Cells % 0 %; Platelet Count 306 K/mm3 (142-424); Red Blood Count 4.49 M/mm3 (4.20-5.40); Red Cell Distribution Width-SD 53.5 fL; White Blood Count 9.1 K/mm3 (4.8-10.8)
[2025-04-18 12:10] LABS: Iron 66 ug/dL (37-170)
[2025-04-18 12:21] LABS: Total Iron Binding Capacity 345 ug/dL (265-497)
[2025-04-18 12:46] LABS: Ferritin 16.9 ng/ml (11.1-264)
== END 2025-04-18 23:59 | disposition home or self-care (01) ==
PROVIDERS: PCP Nurse Practitioner Family; Visit Provider Nurse Practitioner Family
DX: E11.9 Type 2 diabetes mellitus without complications (principal); D50.9 Iron deficiency anemia, unspecified
CPT/HCPCS: 36415; 80048; 82728; 83036; 83540; 83550; 85025

== ENCOUNTER 2025-04-28 10:50 | Emergency (ER) | payer MEDICARE, MEDICAID, SELFPAY ==
[2025-04-28] VITALS (13 sets, daily range): BP systolic 110–150; BP diastolic 44–61; PULSE 60–71; RESP 15–22; TEMP 36.6–36.8; O2SAT 92–97; BMI 33.7
--- NOTE | 2025-04-28 10:56 | ECG_ITS ---
APPROVED REPORT Exam: Resting ECG HR:65 bpm ECG Measurements Heart Rate 65 AXES CO 227 P 62 QRSd 138 QRS -79 QT 411 T 54 QTc 423 Conclusion SINUS RHYTHM WITH FIRST DEGREE AV BLOCK RIGHT BUNDLE BRANCH BLOCK [120+ ms QRS DURATION, UPRIGHT V1, 40+ ms S IN I/aVL/V4/V5/V6] LEFT ANTERIOR FASCICULAR BLOCK [QRS AXIS <= -45, QR IN I, RS IN II] POSSIBLE ANTERIOR MYOCARDIAL INFARCTION , OF INDETERMINATE AGE [30 ms Q WAVE IN V3/V4, OR R < 0.2 mV IN V4] ABNORMAL ECG UNCONFIRMED REPORT Electronically signed by : River Lozano, 04/28/2025 15:20:25
--- OUTSIDE RECORDS SUMMARY | 2025-04-28 10:57 | XMS_ITS | Clinical Summary ---
Author Organization 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
--- OUTSIDE RECORDS SUMMARY | 2025-04-28 10:57 | XMS_ITS | Clinical Summary ---
Author Organization [facility] Address [address] [place] [address] Care Team Providers Care Funeral Pre Arrangement Counselor Name Role Phone Fer Reyez MD Primary Care Provider [phone] Allergies No known active allergies Medications amLODIPine (NORVASC) 5 MG tablet Take 1 tablet by mouth Daily. Active pantoprazole (PROTONIX) 40 MG EC tablet Take 1 tablet by mouth Every Morning Before Breakfast. (Take while on Clopidogrel aka Plavix) 30 tablet 2 2 Active glucose blood test strip Use to check blood glucose 3-4 times per day 200 each 12 2 Active glucose monitor monitoring kit 1 each As Needed (to check blood glucose). 1 each 1 2 Active Insulin Syringe 29G X 1/2 0.5 ML misc Use to administer insulin two times per day 100 each 5 2 Active Lancets (onetouch ultrasoft) lancets Use to check blood glucose 3-4 times per day 200 each 12 2 Active busPIRone (BUSPAR) 5 MG tablet Take 1 tablet by mouth 2 (Two) Times a Day. Active carbidopa-levod opa ER (SINEMET CR) 25-100 MG per tablet Take 1 tablet by mouth 2 (Two) Times a Day. Active carvedilol (COREG) 6.25 MG tablet Take 1 tablet by mouth 2 (Two) Times a Day With Meals. Active insulin lispro protamine-insul in lispro (humaLOG 75-25) (75-25) 100 UNIT/ML suspension injection Inject 35-45 Units under the skin into the appropriate area as directed 2 (Two) Times a Day With Meals. 45 units in am 35 units in pm 4 Active gabapentin (NEURONTIN) 300 MG capsuleIndicati ons:Numbness of right hand,Type 2 diabetes mellitus with hyperglycemia, with long-term current use of insulin Take 2 capsules by mouth Every 12 (Twelve) Hours. 6 capsule 4 Active Additional Information Patient not taking.Reported on 12/05/2024 acetaminophen (TYLENOL) 500 MG tablet Take 1 tablet by mouth Every 6 (Six) Hours As Needed for Mild Pain. Active aluminum hydroxide-magne sium carbonate (GAVISCON) 95-358 MG/15ML suspension oral suspension Take by mouth 3 (Three) Times a Day With Meals. Active glucagon (GlucaGen HypoKit) 1 MG injection Infuse into a venous catheter 1 (One) Time. Active lactulose (CHRONULAC) 10 GM/15ML solution Take 30 mL by mouth 2 (Two) Times a Day As Needed. Active loperamide (IMODIUM) 2 MG capsule Take 1 capsule by mouth 4 (Four) Times a Day As Needed for Diarrhea. Active metFORMIN (GLUCOPHAGE) 500 MG tablet Take 1 tablet by mouth 2 (Two) Times a Day With Meals. Active celecoxib (CeleBREX) 100 MG capsule Take 1 capsule by mouth 2 (Two) Times a Day As Needed for Mild Pain. Active spironolactone (ALDACTONE) 25 MG tablet Take 1 tablet by mouth Daily. Active gabapentin (NEURONTIN) 600 MG tablet Take 1 tablet by mouth 3 (Three) Times a Day. Active insulin glargine (LANTUS, SEMGLEE) 100 UNIT/ML injection Inject 25 Units under the skin into the appropriate area as directed Daily. Active benzonatate (TESSALON) 100 MG capsule Take 1 capsule by mouth 3 (Three) Times a Day As Needed for Cough. Active empagliflozin (Jardiance) 25 MG tablet tablet Take by mouth Daily. Active Cholecalciferol 25 MCG (1000 UT) tablet Take 1 tablet by mouth Daily. Active atorvastatin (LIPITOR) 80 MG tablet Take 1 tablet by mouth Every Night. 4 Active Calcium Carbonate 1500 (600 Ca) MG tablet 5 Active aspirin (Humphrey Aspirin) 325 MG tablet Take 1 tablet by mouth Daily. 5 12/08/19 26 Active Active Problems Problem Noted Date Diagnosed Date History of stroke 09/04/2024 Left carotid stenosis 09/04/2024 Moderate malnutrition 01/21/2024 Essential hypertension 09/16/2022 Stroke 09/07/2022 Right sided weakness 09/05/2022 Tobacco abuse 09/05/2022 Type 2 diabetes mellitus wit h hyperglycemia, with long-term current use of insulin 09/05/2022 COVID-19 virus detected 09/05/2022 Resolved Problems Problem Noted Date Diagnosed Date Resolved Date AMS (altered mental status) 09/05/2022 09/16/2022 Elevated serum creatinine 09/05/2022 Hypomagnesemia 09/05/2022 09/16/2022 Hypokalemia 09/05/2022 09/16/2022 Family History Medical History Relation Name Comments No Known Problems Mother Relation Name Status Comments Father Mother Social History Tobacco Use Types Packs/Day Years Used Date Smoking Tobacco: Every Day Cigarettes Passive Smoke Exposure: Current Smokeless Tobacco: Never Tobacco Cessation:Ready to Q uit: No; Counseling Given: No Comments:Pt states she smokes 7 a day Alcohol Use Standard Drinks/Week Comments Not Currently 0 (1 standard drink = 0.6 oz pur e alcohol) OASIS D0700: Social Isolation Answer Da te Recorded Frequency of experiencing loneliness or isolatio n Rarely 11/11/2022 OASIS A1250: Transportation Answer Date Recorded Lack of Transportation (Medical) No 11/11/2022 Lack of Transportation (Non-Medical) No 11/11/2022 Patient Unable or Declines to Respond No 11/11/2022 OASIS B1300: Health Literacy Answer Daniel e Recorded Frequency of needing help to read materials from doctor or pharmacy Sometimes 11/11/2022 AUDIT-C Answer Date Recorded Q1: How often do you have a drink containing alcohol? Never 01/17/2024 Q2: How many drinks containi ng alcohol do you have on a typical day when you are drinking? Patient does not drink Q3: How often do you have si x or more drinks on one occasion? Never 01/17/2024 Abuse Screen Answer Date Recorded Feels Unsafe at Home or Work/School no 01/17/2024 Feels Threatened by Someone no 01/02 Does Anyone Try to Keep You From Having Contact with Others or Doing Things Outside Your Home? no 01/17/2024 Physical Signs of Abuse Present no 01/17/2024 Housing Stability Answer Date Recorded Current Living Arrangements apartment 01/02 Potentially Unsafe Housing Conditions none 01/18/2024 Disabilities Answer Date Recorded Difficulty Concentrating, Remembering or Making Decisions no 01/17/2024 Difficulty Managing Errands Independently yes 01/17/2024 Education Answer Date Recorded Help with school or training? Not on file Preferred Language Beninese 01/18/2024 PHQ-2 Answer Date Recorded Patient Health Questionnaire-2 Score 0 12/05/2024 Comments Unknown Sex and Gender Information Value Date Recorded Sex Assigned at Not on file Legal Sex Female 1:30 AM EST Gender Identity Not on file Sexual Orientation Not on file Last Filed Vital Signs Vital Sign Reading Time Taken Comments Blood Pressure 128/74 12/05/2024 10:56 AM EST Pulse 76 12/05/2024 10:56 AM EST Temperature 36.2 C (97.1 F) 12/05/2024 10:56 AM EST Respiratory Rate 15 04/28/2024 10:50 AM EDT Oxygen Saturation 98% 12/05/2024 10:56 AM EST Inhaled Oxygen Concentration - - Weight 88.5 kg (195 lb 3.2 oz) 12/05/2024 10:56 AM EST Height 154.9 cm (5' 0.98 ) 12/05/2024 10:[address] Body Mass Index 36.91 12/05/2024 10:56 AM EST Plan of Treatment Upcoming Encounters Date Type Department Care Team (Late st Contact Info) Description 06/05/2025 11:00 AM EDT Appointment [facility] [address] [place] [address] 06/07/2025 9:00 AM EDT Office Visit [facility] [address] [place] [address] Karin Chang, TEST DEPARTMENT HELPER [address] [facility] [address] [place] [address] Health Maintenance Due Date Last Done Comments DXA SCAN 1942 DIABETIC EYE EXAM 1952 DIABETIC FOOT EXAM 1952 URINE MICROALBUMIN-CREATININ E RATIO (uACR) 1952 TDAP/TD VACCINES (1 - Tdap) 1961 ZOSTER VACCINE (1 of 2) 1992 RSV Vaccine - Adults (1 - 1- dose 75+ series) 2017 ANNUAL WELLNESS VISIT 09/16/2022 COVID-19 Vaccine (3 - 2023-2 5 season) 2024 01/10/2021, 12/10/2020 HEMOGLOBIN A1C 07/18/2024 01/17/2024, 09/05/2022 LIPID PANEL 01/17/2025 01/18/2024, 09/05/2022 INFLUENZA VACCINE 07/04/2025 09/05/2020, , 08/10/2016, Additional history exists Pneumococcal Vaccine 50+ Completed 014, 06/15/2013, 07/19/2008 Procedures Procedure Name Priority Date/Time Associated Diagnosis Comments LIPID PANEL Routine 01/18/2024 5:43 AM EDT HEMOGLOBIN A1C Add-On 01/17/2024 10:40 AM EDT from Last 3 Months or Most Recently Relevant to Health Maintenance Results * (ABNORMAL) Lipid Panel (01/18/2024 5:43 AM EDT) Total Cholesterol 228(H) 0 - 200 mg/dL 01/18/2024 6:22 AM EDT [facility] Triglycerides 248(H) 0 - 150 mg/dL 01/18/2024 6:22 AM EDT [facility] HDL Cholesterol 43 40 - 60 mg/dL 01/18/2024 6:22 AM EDT [facility] LDL Cholesterol 140(H) 0 - 100 mg/dL 01/18/2024 6:22 AM EDT [facility] VLDL Cholesterol 45(H) 5 - 40 mg/dL 01/18/2024 6:22 AM EDT [facility] LDL/HDL Ratio 3.15 01/18/2024 6:22 AM EDT [facility] Blood Venipuncture / Unknown 01/18/2024 5:43 AM EDT 01/18/2024 5:53 AM EDT Narrative [facility] - 01/18/2024 6:22 AM EDT Cholesterol Reference Ranges (U.S. Department of Health and Human Services ATP III Classifications) Desirable <200 mg/dL Borderline High 200-239 mg/dL High Risk >240 mg/dL Triglyceride Reference Ranges (U.S. Department of Health and Human Services ATP III Classifications) Normal <150 mg/dL Borderline High 150-199 mg/dL High 200-499 mg/dL Very High >500 mg/dL HDL Reference Ranges (U.S. Department of Health and Human Services ATP III Classifications) Low <40 mg/dl (major risk factor for CHD) High >60 mg/dl ('negative' risk factor for CHD) LDL Reference Ranges (U.S. Department of Health and Human Services ATP III Classifications) Optimal <100 mg/dL Near Optimal 100-129 mg/dL Borderline High 130-159 mg/dL High 160-189 mg/dL Very High >189 mg/dL Tobi Loco PA-C LAB BLOOD ORDERABLES Final R esult [facility]
[address] [place] [address], * (ABNORMAL) Hemoglobin A1c (01/17/2024 10:40 AM EDT) Hemoglobin A1C 12.80(H) 4.80 - 5.60 % 01/17/2024 2:07 PM EDT [facility] Blood Venipuncture / Unknown 01/17/2024 10:40 AM EDT 01/17/2024 10:44 AM EDT Narrative [facility] - 01/17/2024 2:07 PM EDT Hemoglobin A1C Ranges: Increased Risk for Diabetes 5.7% to 6.4% Diabetes >= 6.5% Diabetic Goal < 7.0% us Yobany Avendano MD LAB BLOOD ORDERABLES Final Res ult [facility]
[address] [id number], from Last 3 Months or Most Recently Relevant to Health Maintenance Insurance [employer] MEDICARE() MEDICARE A & B MEDICAID [place] Advance Directives * No CPR (Do Not Attempt to Resuscitate) (Latest Code Status on File) Date Activated Date Inactivated Comments 01/17/2024 1:40 PM 01/21/2024 4:08 PM Question Answer Comments Code Status (Patient has no pulse and is not breathing): No CPR (Do Not Attempt to Resuscitate) Medical Interventions (Patie nt has pulse or is breathing): Limited Support Medical Intervention Limits: NO intubation (DNI) Level Of Support Discussed With: PatientNext of Kin (If No Surrogate) * CPR (Attempt to Resuscitate) Date Activated Date Inactivated Comments 09/19/2022 10:08 PM 01/17/2024 10:30 AM No physic norbert signature needed for this code status. Dann as Signed. * CPR (Attempt to Resuscitate) Date Activated Date Inactivated Comments 09/05/2022 5:26 AM 09/16/2022 12:33 PM Question Answer Comments Code Status (Patient has no pulse and is not breathing): CPR (Attempt to Resuscitate) Medical Interventions (Patie nt has pulse or is breathing): Full Support Level Of Support Discussed With: Patient Care Teams Funeral Pre Arrangement Counselor Relationship Specialty Start Date End Date Fer Reyez MD [facility] [place] [address] PCP - General Family Medicine 05/31/24
--- NOTE | 2025-04-28 11:25 | XR_ITS ---
PROCEDURE INFORMATION: Exam: XR Chest Exam date and time: 04/28/2025 11:29 AM Age: 84 years old Clinical indication: Pain; Other: Cp; Additional info: Chest pain TECHNIQUE: Imaging protocol: Radiologic exam of the chest. Views: 1 view. COMPARISON: CT CHEST WO CON 04/11/2024 7:13 PM FINDINGS: Lungs: Unremarkable. No consolidation. Pleural spaces: Unremarkable. No pleural effusion. No pneumothorax. Heart/Mediastinum: Unremarkable. No cardiomegaly. Bones/joints: Unremarkable. IMPRESSION: No acute findings.
[2025-04-28 11:31] LABS: Hematocrit 38.8 % (37.0-47.0); Hemoglobin 12.7 g/dL (12.2-16.2); Immature Granulocytes % 1.2 %; Mean Corpuscular HGB Conc 32.7 g/dL (31.8-35.4); Mean Corpuscular Hemoglobin 27.7 pg (27.0-31.2); Mean Corpuscular Volume 84.7 fl (81-99); Nucleated Red Blood Cells % 0 %; Platelet Count 316 K/mm3 (142-424); Red Blood Count 4.58 M/mm3 (4.20-5.40); Red Cell Distribution Width-SD 53.0 fL; White Blood Count 7.8 K/mm3 (4.8-10.8)
[2025-04-28 11:34] LABS: Chloride 105 mmol/L (98-107)
[2025-04-28 11:35] LABS: Albumin Level 4.0 g/dl (3.5-5.0); Potassium 4.5 mmoL/L (3.5-5.1); Sodium 136 mmol/L (136-145)
[2025-04-28 11:37] LABS: Alanine Aminotransferase 14 U/L (12-78); Aspartate Amino Transferase 25 U/L (14-36); Blood Urea Nitrogen 23 mg/dl (7-17); Creatinine Clearance Estimated 57 mL/min (50-200); Creatinine,Serum 1.10 mg/dl (0.52-1.04); Estimated Glomerular Filt Rate 48 ml/min (>60); GFR (African American) 58 ML/MIN (>60)
[2025-04-28 11:38] LABS: Albumin/Globulin Ratio 1.2 (1.1-1.8); Alkaline Phosphatase 120 U/L (38-126); Anion Gap 9.5 mEq/L (5-15); Bilirubin,Total 0.2 mg/dl (0.2-1.3); Calcium 10.1 mg/dl (8.4-10.2); Carbon Dioxide 26 mmol/L (22.0-30.0); Globulin 3.3 g/dL (1.3-3.2); Glucose 83 mg/dl (74-100); Total Protein,Serum 7.3 g/dl (6.3-8.2)
[2025-04-28 11:54] LABS: Troponin I < 0.01 ng/ml (0.00-0.034)
--- NOTE | 2025-04-28 12:20 | ED_ITS ---
<Statement entered by Melita Lozano MD - 04/28/25 14:35> I was consulted by the AR, and we discussed the complexity of the problems being addressed. I approved the treatment and management plan for this patient's care in the emergency department, thus performing a substantive portion of the medical decision making. Melita Lozano MD, PRIMO, FACEP Discharge Plan Disposition Patient Disposition: Home, Self-Care Condition: Good Prescriptions Prescriptions: No Action carvedilol 6.25 mg tablet 6.25 mg PO BID Rx Instructions: must administer with a meal/food amlodipine 10 mg tablet 10 mg PO DAILY Qty: 30 2RF ferrous sulfate 325 mg (65 mg iron) tablet 325 mg PO BID Qty: 60 0RF Januvia 50 mg tablet 50 mg PO DAILY hydrocodone-acetaminophen 5-325 mg tablet 1 tab PO DAILY Qty: 30 0RF calcium carbonate 600 mg calcium (1,500 mg) tablet 1,200 mg PO DAILY Qty: 180 3RF cholecalciferol (vitamin D3) 50 mcg (2,000 unit) capsule 50 mcg PO DAILY Qty: 90 3RF benzonatate 100 mg capsule 100 mg PO TID PRN (Reason: Cough) loperamide 2 mg capsule 2 mg PO Q4H PRN (Reason: loose stool) metformin 1,000 mg tablet 1,000 mg PO BID Qty: 180 3RF acetaminophen 500 mg capsule 500 mg PO Q6H PRN (Reason: fever or pain) 90 Days Qty: 90 0RF Gaviscon 95-358 mg/15 mL suspension 30 ml PO QPCHS MDD every 6 hours as needed Qty: 355 0RF GlucaGen HypoKit 1 mg recon soln 1 mg SQ Q20M MDD NEEDED PRN (Reason: hypoglycemia) Qty: 1 0RF Rx Instructions: until target blood sugar attained lactulose 10 gram/15 mL (15 mL) solution 30 ml PO DAILY PRN (Reason: constipation) Qty: 600 2RF buspirone 5 mg tablet 5 mg PO BID Qty: 60 2RF atorvastatin 80 mg tablet 80 mg PO HS Qty: 30 2RF carbidopa-levodopa 25-100 mg tablet 1 tab PO BID Patient Comments: TAKE ONE TABLET THREE TIMES DAILY celecoxib 100 mg capsule 100 mg PO DAILY Qty: 60 2RF pantoprazole 40 mg tablet,delayed release (DR/EC) 40 mg PO DAILY Qty: 30 2RF spironolactone 25 mg tablet 25 mg PO DAILY Qty: 90 3RF aspirin 325 mg tablet 325 mg PO DAILY Qty: 90 3RF Jardiance 25 mg tablet 25 mg PO DAILY Qty: 90 3RF diclofenac sodium [Voltaren Arthritis Pain] 1 % gel 2 g topical QID PRN (Reason: pain) Qty: 100 2RF Rx Instructions: apply to single elbow, wrist or hand; for hand includes palm/fingers/back of hand gabapentin 600 mg tablet 600 mg PO BID Qty: 60 5RF insulin glargine [Basaglar KwikPen U-100 Insulin] 100 unit/mL (3 mL) insulin pen 40 unit SQ BID Qty: 15 11RF Referrals Follow up/Referrals: Fer Reyez MD [Primary Care Provider, Family Practice] - See instructions Activity Restrictions/Add. Instructions Additional Instructions/Restrictions: Please return to the emergency department with any worsening signs or symptoms, please follow-up with your family doctor and recreation therapy aides teacher in the coming days/weeks, continue take all your medication as prescribed. Clinical Impressions Clinical Impression: Chest pain due to GERD, Incidental pulmonary nodule Instructions Patient Instructions: DI for Atypical Chest Pain, DI for Heartburn, DI for Pulmonary Nodule Print Language Print Language: Greenlandic Discharge ED Provider: Melita Lozano General Adult HPI General Chief complaint: Chest Pain Stated complaint: Chest Pain Time Seen by Provider: 04/28/25 12:11 Mode of Arrival: EMS Source of Information: Patient Description of Symptoms (Recalled from ER Triage Doc. by RN): she began having pain in her chest, back, neck and shoulders about 0600 this morning. Also felt nauseaous, which she states is unusual for her. States she felt fine last evening when she went to bed. Did not eat breakfast or take her morning medications. History of Present Illness HPI narrative: 84-year-old female presents to the emergency department via EMS from [facility], with some chest pain that she describes as burning it is substernal, accompanied by some nausea, no vomiting, no diarrhea, does admit to constipation, denies any urinary type symptomatology, admits shortness of breath at times, no chest pain or shortness of breath currently at my assessment at the bedside, denies any fever chills, sore throat, no real abdominal pain, she is current of a day smoker, denies any alcohol or drug use, patient has other past medical history consistent with osteopenia, iron deficiency anemia, CAD, hyperlipidemia, T2DM, onychomycosis, GERD, presents disease. Initial triage vitals are unremarkable. Onset (ago): hour(s) Related Data Home Medications ?Medication ?Instructions ?Recorded ?Confirmed carbidopa 25 mg-levodopa 100 mg 1 tab PO BID 02/09/24 04/28/25 tablet benzonatate 100 mg capsule 100 mg PO TID PRN Cough 07/2704/28/25 loperamide 2 mg capsule 2 mg PO Q4H PRN loose stool 09/12/24 04/28/25 carvedilol 6.25 mg tablet 6.25 mg PO BID 11/21/2404/04 sitagliptin phosphate 50 mg tablet 50 mg PO DAILY 12/0304/28/25 (Januvia) Previous Rx's ?Medication ?Instructions ?Recorded metformin 1,000 mg tablet 1,000 mg PO BID #180 tabs acetaminophen 500 mg capsule 500 mg PO Q6H PRN fever o r pain 90 02/09/24 days #90 caps aluminum hydrox-magnesium carb 95 30 ml PO QPCHS #355 mL 02/09/24 mg-358 mg/15 mL oral suspension (Gaviscon) atorvastatin 80 mg tablet 80 mg PO HS #30 tabs 4 buspirone 5 mg tablet 5 mg PO BID #60 tabs 4 celecoxib 100 mg capsule 100 mg PO DAILY #60 caps 05/27 glucagon 1 mg solution for 1 mg SQ Q20M PRN hypoglycem ia #1 ea 02/09/24 injection (GlucaGen HypoKit) lactulose 10 gram/15 mL (15 mL) 30 ml PO DAILY PRN con stipation 02/09/24 oral solution #600 mL pantoprazole 40 mg tablet,delayed 40 mg PO DAILY #30 t abs 02/09/24 release spironolactone 25 mg tablet 25 mg PO DAILY #90 tabs aspirin 325 mg tablet 325 mg PO DAILY #90 tabs calcium carbonate 1,200 mg (2 x 600 mg calcium 07/05/24 (1,500 mg)) PO DAILY #180 tabs cholecalciferol (vitamin D3) 50 50 mcg PO DAILY #90 ca ps 07/05/24 mcg (2,000 unit) capsule empagliflozin 25 mg tablet 25 mg PO DAILY #90 tabs (Jardiance) amlodipine 10 mg tablet 10 mg PO DAILY #30 tabs 11/04 05/28 ferrous sulfate 325 mg (65 mg 325 mg PO BID #60 tabs 0 01/24/25 iron) tablet diclofenac sodium 1 % topical gel 2 g topical QID PRN pain #100 grams 03/27/25 (Voltaren Arthritis Pain) gabapentin 600 mg tablet 600 mg PO BID #60 tabs 04/18 insulin glargine 100 unit/mL (3 40 unit (0.4 mL) SQ BI D #15 mL 04/19/25 mL) subcutaneous pen (Basaglar KwikPen U-100 Insulin) hydrocodone 5 mg-acetaminophen 325 1 tab PO DAILY #30 tabs 04/24/25 mg tablet Allergies Allergy/AdvReac Type Severity Reaction Status Date / Time No Known Allergies Allergy Verified 04/28/25 13:31 [facility] Disclaimer: The information contained in this section may have been updated after the patient was seen, as this information can be updated by other users. Medical History Anemia Cigarette smoker Left hip pain Knee pain COVID-19 Right hip pain Cerebrovascular accident (CVA) Parkinsons disease Hyperlipidemia CAD (coronary artery disease) Arthritis T2DM (type 2 diabetes mellitus) HTN (hypertension), benign Surgical History History of cataract surgery Family History Other Cancer Social History Smoking Status: Never smoker alcohol intake: never current occupational status: retired Travel in the last 8 weeks?: None Have you lived/traveled outside [place] in past 30 days?: No Contact w/someone who lives/traveled outside [place] past 30 days?: No Exposure to someone with infectious disease in past 14 days?: No Do you have a fever (greater than 100.4 F or 38 C)?: No Have you tested positive for COVID-19?: No Exposed to someone with COVID-19 in past 14 days?: No Do you have a sore throat?: No Do you have a cough?: No Do you have any weakness?: No Do you have any diarrhea?: No Are you experiencing any unusual bleeding?: No Do you have any muscle aches/pain?: No Do you have any abdominal pain?: No Are you experiencing loss of taste or smell?: No Other Medical History Have you received the Pneumonia Vaccine: Yes (01/10/25) ROS Obtained: Yes All systems reviewed & no additional complaints except as documented Physical Exam General General appearance: alert and in no apparent distress Head Head exam: atraumatic and normocephalic Eye Eye exam: Present PERRL and EOMI ENT ENT exam: Present mucous membranes moist Neck Neck exam: Present normal inspection Chest Chest inspection: Present normal inspection and symmetric chest wall rise Respiratory Respiratory exam: Present normal lung sounds bilaterally; Absent respiratory distress Cardiovascular Cardiovascular exam: Present regular rate and normal rhythm Abdominal Exam Abdominal exam: Present soft; Absent distention, tenderness, guarding, rebound or rigidity Extremities Exam Extremities exam: Present normal inspection Neurological Exam Neurological exam: Present alert and oriented X3 Psychiatric Psychiatric exam: Present normal affect Skin Skin exam: Present warm and dry Medical Decision Making Medical Records Medical records reviewed: Yes I reviewed the patient's medical records. Screening: Per USPSTF and CDC recommendations, given the prevalence of disease in our region, it is our hospital?s policy to screen for HIV and viral Hepatitis for all patients aged 18 and over and those with ongoing risk factors. Priyank Inquiry Pt receiving controlled substance: No Priyank was queried for this patient: No Vital Signs: 04/28/25 10:54 04/28/25 10:59 04/28/25 11:01 Temperature 98 F Temperature Source Oral Pulse Rate 68 67 Pulse Rate [Right Brachial] 67 Respiratory Rate 17 21 Blood Pressure 150/59 H 139/59 L Blood Pressure [Right Arm] 139/59 L Blood Pressure Mean Blood Pressure Mean [Right Arm] 85 Blood Pressure Source [Right Arm] Automatic Cuff Blood Pressure Position [Right Arm] Supine 02 Sat by Pulse Oximetry 95 95 95 Oxygen Delivery Method Room Air Room Air Room Air 04/28/25 11:30 04/28/25 11:31 04/28/25 12:01 Temperature Temperature Source Pulse Rate 65 64 65 Pulse Rate [Right Brachial] Respiratory Rate 18 18 18 Blood Pressure 137/46 L 137/46 L 120/44 L Blood Pressure [Right Arm] Blood Pressure Mean 79 75 Blood Pressure Mean [Right Arm] Blood Pressure Source [Right Arm] Blood Pressure Position [Right Arm] 02 Sat by Pulse Oximetry 97 95 96 Oxygen Delivery Method 04/28/25 12:31 04/28/25 13:01 Temperature Temperature Source Pulse Rate 66 66 Pulse Rate [Right Brachial] Respiratory Rate 18 15 Blood Pressure 136/57 L 130/56 L Blood Pressure [Right Arm] Blood Pressure Mean Blood Pressure Mean [Right Arm] Blood Pressure Source [Right Arm] Blood Pressure Position [Right Arm] 02 Sat by Pulse Oximetry 96 93 L Oxygen Delivery Method Room Air Room Air Lab Data Lab results reviewed: Yes I reviewed the patient's lab results. Lab Results 04/28/25 10:41: WBC 7.8, RBC 4.58, Hgb 12.7, Hct 38.8, MCV 84.7, MCH 27.7, MCHC 32.7, RDW 17.2, Plt Count 316, MPV 8.8, Neut % (Auto) 67.1, Lymph % (Auto) 20.5, [place] % (Auto) 7.9, Eos % (Auto) 2.7, Baso % (Auto) 0.6, Neut # (Auto) 5.2, Lymph # (Auto) 1.6, [place] # (Auto) 0.6, Eos # (Auto) 0.2, Baso # (Auto) 0.1, D-Dimer 1.02 H, Sodium 136, Potassium 4.5, Chloride 105, Carbon Dioxide 26, Anion Gap 9.5, BUN 23 H, Creatinine 1.10 H, Estimated Creat Clear 57, Estimated GFR 48 L, Est GFR ( Amer) 58 L, Glucose 83, Calcium 10.1, Total Bilirubin 0.2, AST 25, ALT 14, Alkaline Phosphatase 120, Troponin I < 0.01, Total Protein 7.3, Albumin 4.0, Globulin 3.3 H, Albumin/Globulin Ratio 1.2 04/28/25 13:10: Troponin I < 0.01 04/28/25 10:41 04/28/25 10:41 Orders (Tests/Meds): ED MEDICATIONS Discontinued Medications Generic Name Dose Route Start Last Admin Trade Name Freq PRN Reason Stop Dose Admin Belladonna Alkaloids 60 ml 04/28/25 12:29 04/28/25 12:40 Belladonna Alkaloids 60 Ml Ml PO 04/28/25 12:30 60 ml ONCE ONE Administration Iopamidol 80 ml 04/28/25 13:42 04/28/25 13:43 Iopamidol-370 (76%);100ml Bottle IV 04/28/25 13:43 80 ml ONCE ONE Administration Sodium Chloride 10 ml 04/28/25 13:42 04/28/25 13:43 Sodium Chloride 0.9% 10ml Syr (Rad Only) IV 04/28/25 13:43 10 ml ONCE ONE Administration Sodium Chloride 50 ml 04/28/25 13:42 04/28/25 13:43 0.9 % Sodium Chloride 50 Ml Vial IV 04/28/25 13:43 50 ml ONCE ONE Administration ORDERS Category Date Time Status CT angio chest PE protocol Stat Cat Scan 04/28/25 13:26 Completed XR chest portable Stat Exams 04/28/25 11:25 Completed Complete Blood Count Auto Diff Stat Lab 04/28/25 10:41 Completed Comprehensive Metabolic Panel Stat Lab 04/28/25 10:41 Completed D-Dimer Stat Lab 04/28/25 10:41 Completed Troponin I Q3H Lab 04/28/25 13:10 Completed Troponin I Q3H Lab 04/28/25 17:30 Ordered Troponin I Stat Lab 04/28/25 10:41 Completed Medical Decision Narrative: 84-year-old female presents to the emergency department with chest pain nausea, differential diagnosis include but not limited to ACS, PE, cardiac arrhythmia, electrolyte disturbance, gastritis, GERD, costochondritis, pneumonia, pneumothorax, among others. I discussed this patient's case with the attending physician Dr. Lozano Will obtain basic laboratory studies, CXR, troponin, D-dimer, EKG, will give GI cocktail for patient's symptomatology. CBC unremarkable Initial troponin is within normal limits, CMP is noted for elevated creatinine BUN/NUNU, however appears to be in line with the patient's baseline, thus this likely acute on chronic kidney injury. I reviewed the patient's chest x-ray along the corresponding radiologic report, no acute findings. D-dimer is elevated at 1.02, thus years criteria cannot be utilized to rule out PE, will obtain CTA chest with without contrast PE protocol. Subsequent troponin is within normal limits at less than 0.01 I reviewed the patient's CTA chest with and without contrast PE protocol, no evidence of pulmonary embolus to the segmental level, no aneurysm of the aorta, no dissection of the aorta, stable 6.3 mm groundglass pulmonary nodule right middle lobe, recommend CT chest in 6 to 12 months, bibasilar opacities may represent atelectasis or pneumonia. I discussed the results with the patient at bedside, patient is in agreement with the current discharge plan/treatment plan, currently no chest pain/burning at this time, thought to be more of a gastritis/GERD picture, patient is on PPI and calcium carbonate, [facility], currently chest pain-free, has remained hemodynamically stable throughout her time in the emergency room, negative CTA and negative troponins, negative EKG, patient given strict ED return precautions, patient will keep follow-up with PCP and pulmonology. Critical Care Critical Care Time Critical Care Time: No
[2025-04-28] MEDS: BELLADONNA ALKALOIDS 60 ML ML PO (12:40)
[2025-04-28 13:16] LABS: D-Dimer 1.02 ug/mL (0.0-0.5)
--- NOTE | 2025-04-28 13:26 | CT_ITS ---
PROCEDURE INFORMATION: Exam: CTA Chest With Contrast Exam date and time: 04/28/2025 1:43 PM Age: 84 years old Clinical indication: Pain; Chest pressure; Additional info: Cp, elevated d-dimer TECHNIQUE: Imaging protocol: Computed tomographic angiography of the chest with contrast. Exam focused on the arteries. 3D rendering (Not supervised by radiologist): MIP and/or 3D reconstructed images were created by the technologist. Radiation optimization: All CT scans at this facility use at least one of these dose optimization techniques: automated exposure control; mA and/or kV adjustment per patient size (includes targeted exams where dose is matched to clinical indication); or iterative reconstruction. Contrast material: ISOVUE; Contrast volume: 80 ml; Contrast route: INTRAVENOUS (IV); COMPARISON: CT CHEST WO CON 04/11/2024 7:13 PM FINDINGS: Pulmonary arteries: No evidence of pulmonary embolus to the segmental level. Aorta: No aneurysm of the aorta. No dissection of the aorta. Lungs: Stable 6.3 mm ground-glass pulmonary nodule right middle lobe series 5, image 63.. Bibasilar opacities may represent atelectasis or pneumonia.. Pleural spaces: Unremarkable. No pneumothorax. No pleural effusion. Heart: Unremarkable. No cardiomegaly. No pericardial effusion. Coronary arteries: Coronary artery calcifications may indicate coronary artery disease. Lymph nodes: Unremarkable. No enlarged lymph nodes. Gallbladder and biliary ducts: Cholecystectomy Adrenal glands: Left adrenal adenoma measures 7 Hounsfield units and 2.3 x 1.7 cm. . No follow-up imaging recommended . Kidneys: 5.5 cm simple cyst right kidney. Additional 5 cm simple cyst right kidney . No follow-up imaging recommended . Bones/joints: Unremarkable. No acute fracture. Soft tissues: Unremarkable. IMPRESSION: 1. No evidence of pulmonary embolus to the segmental level. 2. No aneurysm of the aorta. 3. No dissection of the aorta. 4. Stable 6.3 mm ground-glass pulmonary nodule right middle lobe series 5, image 63.. Recommend CT Chest at 6-12 months to confirm persistence of the nodule, then CT Chest at 3 years and 5 years. (Reference: Rolando) References: Rolando Hammer, et al. Guidelines for Management of Incidental Pulmonary Nodules Detected on CT Images: From the Fleischner Society 2017. Radiology. 2017;284(1):228-243. 5. Bibasilar opacities may represent atelectasis or pneumonia.. COMMENTS: 1. Consistent with the [employer]'s Incidental Findings Committee white paper (J Am Reed Radiol 2017): Any incidental adrenal lesion less than 1 cm is likely benign. No follow-up imaging is recommended for these lesions per consensus recommendations based on imaging criteria. Further lab evaluation could be pursued if warranted based on clinical findings. 2. Consistent with the [employer]'s Incidental Findings Committee white paper (J Am Reed Radiol 2018): Any incidental renal lesion less than 1 cm or classified as too small to characterize, or any incidental cystic renal lesion characterized as simple-appearing, is likely benign. No follow-up imaging is recommended for these lesions per consensus recommendations based on imaging criteria.
[2025-04-28] MEDS: IOPAMIDOL-370 (76%);100ML BOTTLE 80 ML IV (13:43)
[2025-04-28] MEDS: SODIUM CHLORIDE 0.9% 10ML SYR (RAD ONLY) 10 ML IV (13:43)
[2025-04-28] MEDS: 0.9 % SODIUM CHLORIDE 50 ML VIAL IV (13:43)
[2025-04-28 13:51] LABS: Troponin I < 0.01 ng/ml (0.00-0.034)
--- NOTE | 2025-04-28 15:07 | PC.NURSE ---
[facility]
== END 2025-04-28 16:02 | disposition home or self-care (01) ==
PROVIDERS: Physician Assistant; Emergency Provider Student in an Organized Health Care Education/Training Program; PCP Family Medicine
DX: R07.89 Other chest pain (principal); K21.9 Gastro-esophageal reflux disease without esophagitis; R91.1 Solitary pulmonary nodule; F17.210 Nicotine dependence, cigarettes, uncomplicated; I10 Essential (primary) hypertension; E78.5 Hyperlipidemia, unspecified; E11.9 Type 2 diabetes mellitus without complications; Z86.79 Personal history of other diseases of the circulatory system
CPT/HCPCS: 71045; 71275; 80053; 84484; 85025; 85378; 93005; 99285; Q9967

== ENCOUNTER 2025-08-03 09:04 | Outpatient (CLI) | payer MEDICARE, MEDICAID, SELFPAY ==
--- OUTSIDE RECORDS SUMMARY | 2025-06-05 11:00 | XMS_ITS | Encounter Summary ---
Author Organization [facility] Address [address] [place] [address] Care Team Providers Care Chiller Tender Name Role Phone Fer Reyez MD Primary Care Provider [phone] Reason for Referral * Diagnostic Imaging (Routine) - Closed Specialty Diagnoses / Procedures Referred By Yoselyn wilder Referred To Contact Diagnoses Left carotid stenosis Procedures Duplex Carotid Ultrasound CAR Karin Chang APRN [address] [place] [address] Phone: tel: fax: [address] [address] Phone: tel: Referral ID Status Reason Start Date Expiration Date Visits Re quested Visits Authorized [id number] Closed 12/07/2024 12/07/2025 1 1 Reason for Visit * Diagnostic Imaging (Routine) - Closed Specialty Diagnoses / Procedures Referred By Chanceac t Referred To Contact Diagnoses Left carotid stenosis Procedures Duplex Carotid Ultrasound CAR Karin Chang APRN [address] [place] [address] Phone: tel: fax: [facility] [address] [place] [address] Phone: tel: Referral ID Status Reason Start Date Expiration Date Visits Re quested Visits Authorized [id number] Closed 12/07/2024 12/07/2025 1 1 Encounter Details Date Type Department Care Team (Late st Contact Info) Description 06/05/2025 11:00 AM EDT - 06/05/2025 11:59 PM EDT Hospital Encounter [facility] [address] [facility] [address] [place] [address] Karin Chang, SIGN ERECTOR AND REPAIRER [address] [place] [address] Left carotid stenosis Discharge Disposition: Home or Self Care Social History Tobacco Use Types Packs/Day Years Used Date Smoking Tobacco: Every Day Cigarettes Passive Smoke Exposure: Current Smokeless Tobacco: Never Comments:Pt states she smoke s 7 a day Alcohol Use Standard Drinks/Week [...] or training? Not on file Preferred Language Croatian 01/18/2024 PHQ-2 Answer Date Recorded Patient Health Questionnaire-2 Score 0 12/05/2024 Comments Unknown Sex and Gender Information Value Date Recorded Sex Assigned at Not on file Legal Sex Female 1:30 AM EST Gender Identity Not on file Sexual Orientation Not on file documented as of this encounter Last Filed Vital Signs Vital Sign Reading Time Taken Comments Blood Pressure - - Pulse - - Temperature - - Respiratory Rate - - Oxygen Saturation - - Inhaled Oxygen Concentration - - Weight 88.5 kg (195 lb 3.2 oz) 06/05/2025 11:49 AM EDT Height 154.9 cm (5' 0.98 ) 06/05/2025 11:49 AM E DT Body Mass Index 36.91 06/05/2025 11:49 AM EDT documented in this encounter Medications at Time of Discharge acetaminophen (TYLENOL) 500 MG tablet Take 1 tablet by mouth Every 6 (Six) Hours As Needed for Mild Pain. aluminum hydroxide-magnes ium carbonate (GAVISCON) 95-358 MG/15ML suspension oral suspension Take by mouth 3 (Three) Times a Day With Meals. amLODIPine (NORVASC) 5 MG tablet Take 1 tablet by mouth Daily. aspirin (Humphrey Aspirin) 325 MG tablet Take 1 tablet by mouth Daily. 12/07/2024 atorvastatin (LIPITOR) 80 MG tablet Take 1 tablet by mouth Every Night. 09/04/2024 benzonatate (TESSALON) 100 MG capsule Take 1 capsule by mouth 3 (Three) Times a Day As Needed for Cough. busPIRone (BUSPAR) 5 MG tablet Take 1 tablet by mouth 2 (Two) Times a Day. Calcium Carbonate 1500 (600 Ca) MG tablet 11/20/2024 carbidopa-levodo pa ER (SINEMET CR) 25-100 MG per tablet Take 1 tablet by mouth 2 (Two) Times a Day. carvedilol (COREG) 6.25 MG tablet Take 1 tablet by mouth 2 (Two) Times a Day With Meals. celecoxib (CeleBREX) 100 MG capsule Take 1 capsule by mouth 2 (Two) Times a Day As Needed for Mild Pain. Cholecalciferol 25 MCG (1000 UT) tablet Take 1 tablet by mouth Daily. empagliflozin (Jardiance) 25 MG tablet tablet Take by mouth Daily. escitalopram (LEXAPRO) 5 MG tablet 1 tablet. 05/26/2025 ferrous sulfate 325 (65 FE) MG tablet 05/21/2025 gabapentin (NEURONTIN) 300 MG capsuleIndicatio ns:Numbness of right hand,Type 2 diabetes mellitus with hyperglycemia, with long-term current use of insulin Take 2 capsules by mouth Every 12 (Twelve) Hours. 6 capsule 01/21/2024 gabapentin (NEURONTIN) 600 MG tablet Take 1 tablet by mouth 3 (Three) Times a Day. glucagon (GlucaGen HypoKit) 1 MG injection Infuse into a venous catheter 1 (One) Time. glucose blood test strip Use to check blood glucose 3-4 times per day 200 each 12 09/16/2022 glucose monitor monitoring kit 1 each As Needed (to check blood glucose). 1 each 1 09/16/2022 HYDROcodone-acet aminophen (NORCO) 5-325 MG per tablet 05/23/2025 insulin glargine (LANTUS, SEMGLEE) 100 UNIT/ML injection Inject 25 Units under the skin into the appropriate area as directed Daily. insulin lispro protamine-insuli n lispro (humaLOG 75-25) (75-25) 100 UNIT/ML suspension injection Inject 35-45 Units under the skin into the appropriate area as directed 2 (Two) Times a Day With Meals. 45 units in am 35 units in pm 01/21/2024 Insulin Syringe 29G X 1/2 0.5 ML misc Use to administer insulin two times per day 100 each 5 09/16/2022 Januvia 50 MG tablet 05/21/2025 lactulose (CHRONULAC) 10 GM/15ML solution Take 30 mL by mouth 2 (Two) Times a Day As Needed. Lancets (onetouch ultrasoft) lancets Use to check blood glucose 3-4 times per day 200 each 12 09/16/2022 loperamide (IMODIUM) 2 MG capsule Take 1 capsule by mouth 4 (Four) Times a Day As Needed for Diarrhea. metFORMIN (GLUCOPHAGE) 500 MG tablet Take 1 tablet by mouth 2 (Two) Times a Day With Meals. pantoprazole (PROTONIX) 40 MG EC tablet Take 1 tablet by mouth Every Morning Before Breakfast. (Take while on Clopidogrel aka Plavix) 30 tablet 2 09/16/2022 spironolactone (ALDACTONE) 25 MG tablet Take 1 tablet by mouth Daily. documented as of this encounter Plan of Treatment Upcoming Encounters Date Type Department Care Team (Late st Contact Info) Description 06/07/2026 11:00 AM EDT Office Visit [facility] [address] [place] [address] [place], [place] [id number] Karin Chang APRN [address] [place] [id number] [id number] documented as of this encounter Procedures Procedure Name Priority Date/Time Associated Diagnosis Comments DUPLEX CAROTID BILATERAL CAR - PERFORMED PROCEDURE Routine 06/05/2025 11:48 AM EDT Left carotid stenosis documented in this encounter Results * DUPLEX CAROTID BILATERAL CAR - PERFORMED PROCEDURE (06/05/2025 11:48 AM EDT) Prox CCA PSV 69.9 cm/sec Prox CCA EDV 8.7 cm/sec Right Mid CCA PSV 71.9 cm/sec right Mid CCA EDV 11.3 cm/sec Dist CCA PSV 61.4 cm/sec Dist CCA EDV 6.7 cm/sec Prox ICA PSV 63.2 cm/sec Prox ICA EDV 9.1 cm/sec Mid ICA PSV 71.0 cm/sec Mid ICA EDV 15.6 cm/sec Dist ICA PSV 78.8 cm/sec Dist ICA EDV 14.3 cm/sec Vertebral A PSV 45.4 cm/sec Vertebral A EDV 7.4 cm/sec Prox CCA PSV 100.0 cm/sec Prox CCA EDV 6.6 cm/sec left Mid CCA PSV 68.5 cm/sec left Mid CCA EDV 9.9 cm/sec Dist CCA PSV 58.6 cm/sec Dist CCA EDV 8.6 cm/sec Prox ICA PSV 197.0 cm/sec Prox ICA EDV 23.6 cm/sec Mid ICA PSV 60.7 cm/sec Mid ICA EDV 14.7 cm/sec Dist ICA PSV 52.4 cm/sec Dist ICA EDV 11.3 cm/sec Prox ECA PSV 133.3 cm/sec Prox ECA EDV 10.6 cm/sec Vertebral A PSV 46.7 cm/sec Vertebral A EDV 6.1 cm/sec Prox SCLA PSV 159.7 cm/sec ICA/CCA ratio 1.10 Prox SCLA PSV 104.2 cm/sec ICA/CCA ratio 2.88 Prox ECA PSV -96.1 cm/sec Prox ECA EDV -5.0 cm/sec Anatomical Region Laterality Modality Ultrasound Narrative 06/05/2025 12:58 PM EDT Right internal carotid artery demonstrates a less than 50% stenosis. Antegrade right vertebral flow. Left internal carotid artery demonstrates a 50-69% stenosis. Antegrade left vertebral flow. When compared to the study performed in December 2024, there is no significant change. Study Impression Right ICA: Imaging indicates <50% stenosis. Left ICA: Imaging indicates 50-69% stenosis. Study Findings Right CCA Prox: Intima-medial thickening noted. Right CCA Mid: Intima-medial thickening noted. Right CCA Dist: Intima-medial thickening noted. Right ICA Prox: Irregular heterogeneous plaque present. Right ICA Mid: No plaque visualized. Right ICA Dist: No plaque visualized. Right ECA: Irregular heterogeneous plaque present. Right Vertebral: Antegrade flow noted. Left CCA Prox: Intima-medial thickening noted. Left CCA Mid: Intima-medial thickening noted. Left CCA Dist: Intima-medial thickening noted. Left ICA Prox: Irregular heterogeneous plaque present. Left ICA Mid: No plaque visualized. Left ICA Dist: No plaque visualized. Left ECA: Irregular heterogeneous plaque present. Left Vertebral: Antegrade flow noted. No elevated velocities detected in the right ICA. Elevated velocities detected in the left ICA with a PSV of 197/23.6, ratio of 2.88. Unable to obtain PSV (246.3/33.3) of previous scan performed on 12/05/2024. Antegrade vertebral flow detected bilaterally. Additional Study Details The study is technically good for diagnosis. us Karin Chang APRN CV VASCULAR ORDERABLES Fin al Result documented in this encounter Visit Diagnoses Diagnosis Left carotid stenosis documented in this encounter Care Teams Chiller Tender Relationship Specialty Start Date End Date Fer Reyez MD [address] [place] [address] PCP - General Family Medicine 05/31/24 documented as of this encounter
--- OUTSIDE RECORDS SUMMARY | 2025-06-07 09:00 | XMS_ITS | Encounter Summary ---
[facility] Address [address] [place] [address] Care Team Providers Care Continuous Process Rotary Drum Tanner Name Role Phone Fer Reyez MD Primary Care Provider +1- [phone] Reason for Referral * Diagnostic Imaging (Routine) - Pending Review Specialty Diagnoses / Procedures Referred By Yoselyn wilder Referred To Contact Diagnoses Left carotid stenosis Procedures Duplex Carotid Ultrasound CAR Karin Chang APRN [address] [facility] [address] [address] Phone: tel: fax: [facility] [address] [place] [id number] Phone: tel: Referral ID Status Reason Start Date Expiration Date V isits Requested Visits Authorized [id number] Pending Review 06/07/2025 09/06/2026 1 1 Reason for Visit * Reason Comments Follow-up Encounter Details Date Type Department Care Team (Late st Contact Info) Description 06/07/2025 9:00 AM EDT Office Visit [facility] [address] [place] [address] Karin Chang APRN [address] [place] [address] Left carotid stenosis (Primary Dx) Social History Tobacco Use Types Packs/Day Years Used Date Smoking Tobacco: Every Day Cigarettes Passive Smoke Exposure: Current Smokeless Tobacco: Never Tobacco Cessation:Ready to Q uit: No; Counseling Given: No Comments:Pt states she smokes 8 a day Alcohol Use Standard Drinks/Week Comments [...] Answer Date Recorded Patient Health Questionnaire-2 Score 2 06/07/2025 Comments Unknown Sex and Gender Information Value Date Recorded Sex Assigned at Not on file Legal Sex Female 1:30 AM EST Gender Identity Not on file Sexual Orientation Not on file documented as of this encounter Last Filed Vital Signs Vital Sign Reading Time Taken Comments Blood Pressure 138/76 06/07/2025 9:30 AM EDT Pulse 62 06/07/2025 9:30 AM EDT Temperature 36.4 C (97.5 F) 06/07/2025 9:30 AM EDT Respiratory Rate - - Oxygen Saturation 96% 06/07/2025 9:30 AM EDT Inhaled Oxygen Concentration - - Weight 91.6 kg (202 lb) 06/07/2025 9:30 AM EDT s tated Height 154.9 cm (5' 0.98 ) 06/07/2025 9:30 AM ED T Body Mass Index 38.19 06/07/2025 9:30 AM EDT documented in this encounter Functional Status documented as of this encounter Patient Instructions * Patient Instructions* Karin Chang APRN - 06/07/2025 9:00 AM EDT - Continue aspirin 325 mg and Lipitor 80 mg -Emphasized importance of smoking cessation - Carotid duplex completed 06/05/2025 is stable with no significant changes -Will plan to schedule next carotid duplex in 1 year -1 for any new stroke like symptoms documented in this encounter Progress Notes * Karin Chang APRN - 06/07/2025 9:00 AM EDT Follow Up Office Visit Encounter Date: 06/07/2025 Patient Name: Erika Irwin : 1940 PCP: Fer Reyez MD Chief Complaint: history of stroke History of Present Illness: Erika Irwin is a 84 y.o. right handed female here for stroke clinicfollow up. The patient has a past medical history of diabetes mellitus type II (hemoglobin A1c 12.8%, chronic right cerebellar infarct (2021), hypertension, hyperlipidemia, tobacco use disorder, and Parkinson'sdisease. Stroke history includes acute onset of right hemiparesis , left ICA stenosis 70-80%, and chronic right cerebellar ischemic stroke, grade 1 diastolic dysfunction. Etiology of stroke is likely small vessel disease; however, there remains the possibility of pAfib. Secondary stroke prevention started including; DAPT and high dose atorvastatin. Of note, the patient's P2Y12 indicates a response to therapy. The patient presents in her wheelchair with her director medical science from her longterm facility. We discussed the patient's recent carotid ultrasound from 08/30/2024, revealing right ICA is essentially unremarkable and left ICA shows moderate stenosis 50- 69% stenosis. The patient's prior carotidultrasound 01/2024, revealed left ICA stenosis of < 50 %. The patient is taking 80 mg atorvastatin and 325 mg aspirin for secondary stroke prevention. Patient reports, she spends most of the time in the wheelchair; however, she can get up and walk from the bathroom and back to her sitting area or bed if needed. The patient denies any recent falls. She continues to monitor her stroke risk factors at her extended care facility. We again discussed the importance of possible underlying atrial fibrillation and having a Holter monitor placed; however, the patient remains unwilling to move forward with monitoring for atrial fibrillation. We discussed at great length the importance of monitoring her cardiac rhythm for possible paroxysmal atrial fibrillation as well as the risks and benefits of treatment changes for stroke prevention. The patient reports she engages in multiple social activities such as bingo, coffee social and getting her nails done. Patient denies any other neurological symptoms, including: headache, vision changes, dysesthesias, loss of consciousness, seizure or new areas of motor weakness. Clinic visit 12/05/2024: Patient arrives to clinic in a wheelchair with a staff member from her facility. She has not had any new symptoms or episodes. She has been taking her medications without side effects or issues. She completed a follow up carotid U/S this morning to evaluate the status of her left ICA stenosis. Per report it shows no significant change compared to prior study. Will continue same medication regimen that was put in place per Angelita Patton APRN at the last visit which is aspirin 325 and lipitor 80 mg nightly. Clinic visit 06/07/2025: Since her last visit in 12/2024, she reports no significant changes in her health status. Her appetite and hydration are satisfactory, and she has not experienced any recent falls. She was previously engaged in physical therapy, occupational therapy, and speech therapy, but these have been discontinued. Although she is capable of using a walker, she expresses fear and discomfort when attempting to walk, leading her to primarily use a wheelchair. She reports significant pain when trying to walk. A carotid ultrasound was performed two days ago, showing no significant change from the previous ultrasound in 12/2024. She has not encountered any issues with her medications. Subjective I have reviewed and the following portions of the patient's history were updated as appropriate: past family history, past medical history, past social history, past surgical history and problem list. Medications: Current Outpatient Medications: acetaminophen (TYLENOL) 500 MG tablet, Take 1 tablet by mouth Every 6 (Six) Hours As Needed for Mild Pain., Disp: , Rfl: aluminum hydroxide-magnesium carbonate (GAVISCON) 95-358 MG/15ML suspension oral suspension, Take by mouth 3 (Three) Times a Day With Meals., Disp: , Rfl: amLODIPine (NORVASC) 5 MG tablet, Take 1 tablet by mouth Daily., Disp: , Rfl: aspirin (Humphrey Aspirin) 325 MG tablet, Take 1 tablet by mouth Daily., Disp: , Rfl: atorvastatin (LIPITOR) 80 MG tablet, Take 1 tablet by mouth Every Night., Disp: , Rfl: benzonatate (TESSALON) 100 MG capsule, Take 1 capsule by mouth 3 (Three) Times a Day As Needed for Cough., Disp: , Rfl: busPIRone (BUSPAR) 5 MG tablet, Take 1 tablet by mouth 2 (Two) Times a Day., Disp: , Rfl: Calcium Carbonate 1500 (600 Ca) MG tablet, , Disp: , Rfl: carbidopa-levodopa ER (SINEMET CR) 25-100 MG per tablet, Take 1 tablet by mouth 2 (Two) Times a Day., Disp: , Rfl: carvedilol (COREG) 6.25 MG tablet, Take 1 tablet by mouth 2 (Two) Times a Day With Meals., Disp: , Rfl: celecoxib (CeleBREX) 100 MG capsule, Take 1 capsule by mouth 2 (Two) Times a Day As Needed for MildPain., Disp: , Rfl: Cholecalciferol 25 MCG (1000 UT) tablet, Take 1 tablet by mouth Daily., Disp: , Rfl: empagliflozin (Jardiance) 25 MG tablet tablet, Take by mouth Daily., Disp: , Rfl: escitalopram (LEXAPRO) 5 MG tablet, 1 tablet., Disp: , Rfl: ferrous sulfate 325 (65 FE) MG tablet, , Disp: , Rfl: glucagon (GlucaGen HypoKit) 1 MG injection, Infuse into a venous catheter 1 (One) Time., Disp: , Rfl: glucose blood test strip, Use to check blood glucose 3-4 times per day, Disp: 200 each, Rfl: 12 glucose monitor monitoring kit, 1 each As Needed (to check blood glucose)., Disp: 1 each, Rfl: 1 HYDROcodone-acetaminophen (NORCO) 5-325 MG per tablet, , Disp: , Rfl: Januvia 50 MG tablet, , Disp: , Rfl: lactulose (CHRONULAC) 10 GM/15ML solution, Take 30 mL by mouth 2 (Two) Times a Day As Needed., Disp: , Rfl: loperamide (IMODIUM) 2 MG capsule, Take 1 capsule by mouth 4 (Four) Times a Day As Needed for Diarrhea., Disp: , Rfl: pantoprazole (PROTONIX) 40 MG EC tablet, Take 1 tablet by mouth Every Morning Before Breakfast. (Take while on Clopidogrel aka Plavix), Disp: 30 tablet, Rfl: 2 spironolactone (ALDACTONE) 25 MG tablet, Take 1 tablet by mouth Daily., Disp: , Rfl: gabapentin (NEURONTIN) 300 MG capsule, Take 2 capsules by mouth Every 12 (Twelve) Hours. (Patient not taking: Reported on 09/04/2024), Disp: 6 capsule, Rfl: 0 gabapentin (NEURONTIN) 600 MG tablet, Take 1 tablet by mouth 3 (Three) Times a Day. (Patient not taking: Reported on 06/07/2025), Disp: , Rfl: insulin glargine (LANTUS, SEMGLEE) 100 UNIT/ML injection, Inject 25 Units under the skin into the appropriate area as directed Daily. (Patient not taking: Reported on 06/07/2025), Disp: , Rfl: insulin lispro protamine-insulin lispro (humaLOG 75-25) (75-25) 100 UNIT/ML suspension injection, Inject 35-45 Units under the skin into the appropriate area as directed 2 (Two) Times a Day With Meals. 45 units in am 35 units in pm (Patient not taking: Reported on 06/07/2025), Disp: , Rfl: Insulin Syringe 29G X 1/2 0.5 ML misc, Use to administer insulin two times per day (Patient not taking: Reported on 06/07/2025), Disp: 100 each, Rfl: 5 Lancets (onetouch ultrasoft) lancets, Use to check blood glucose 3-4 times per day (Patient not taking: Reported on 06/07/2025), Disp: 200 each, Rfl: 12 metFORMIN (GLUCOPHAGE) 500 MG tablet, Take 1 tablet by mouth 2 (Two) Times a Day With Meals. (Patient not taking: Reported on 06/07/2025), Disp: , Rfl: Allergies: No Known Allergies Objective Physical Exam: Vital Signs: Vitals: 06/07/25 0930 BP: 138/76 Pulse: 62 Temp: 97.5 ??F (36.4 ??C) SpO2: 96% Weight: 91.6 kg (202 lb) Comment: stated Height: 154.9 cm (60.98 ) Body mass index is 38.19 kg/m??. Physical Exam Vitals and nursing note reviewed. Constitutional: General: She is not in acute distress. Appearance: Normal appearance. She is obese. She is not ill-appearing. HENT: Head: Normocephalic and atraumatic. Nose: Nose normal. Mouth/Throat: Mouth: Mucous membranes are moist. Eyes: Extraocular Movements: Extraocular movements intact. Pupils: Pupils are equal, round, and reactive to light. Cardiovascular: Rate and Rhythm: Normal rate and regular rhythm. Pulses: Normal pulses. Pulmonary: Effort: Pulmonary effort is normal. No respiratory distress. Skin: General: Skin is warm and dry. Neurological: General: No focal deficit present. Mental Status: She is alert and oriented to person, place, and time. Mental status is at baseline. Cranial Nerves: No cranial nerve deficit. Sensory: No sensory deficit. Motor: Weakness present. Coordination: Coordination normal. Gait: Gait abnormal. Comments: Alert and oriented X 3. Follows commands. Speech is clear. Seated in wheelchair. Can moveextremities equally. Psychiatric: Mood and Affect: Mood normal. Behavior: Behavior normal. Modified Kajal Score: 3 0 No Symptoms 1 No significant disability. Able to carry out all usual activities, despite some symptoms. 2 Slight disability. Able to look after own affairs without assistance, but unable to carry out allprevious activities. 3 Moderate disability. Requires some help, but able to walk unassisted. 4 Moderately severe disability. Unable to attend to own bodily needs without assistance, and unableto walk unassisted. 5 Severe disability. Requires constant nursing care and attention, bedridden, incontinent. 6 PHQ-9 Depression Screening Little interest or pleasure in doing things? Several days Feeling down, depressed, or hopeless? Several days PHQ-2 Total Score 2 Trouble falling or staying asleep, or sleeping too much? Feeling tired or having little energy? Poor appetite or overeating? Feeling bad about yourself - or that you are a failure or have let yourself or your family down? Trouble concentrating on things, such as reading the newspaper or watching television? Moving or speaking so slowly that other people could have noticed? Or the opposite - being so fidgety or restless that you have been moving around a lot more than usual? Thoughts that you would be better off , or of hurting yourself in some way? PHQ-9 Total Score If you checked off any problems, how difficult have these problems made it for you to do your work,take care of things at home, or get along with other people? HARRY Fall Risk Clinician [place] Questions Have you fallen in the past year?: No Do you feel unsteady with walking?: Yes Hemoglobin Date Value Ref Range Status 01/18/2024 12.7 12.0 - 15.9 g/dL Final Hematocrit Date Value Ref Range Status 01/18/2024 37.5 34.0 - 46.6 % Final Platelets Date Value Ref Range Status 01/18/2024 243 140 - 450 10*3/mm3 Final Hemoglobin A1C Date Value Ref Range Status 01/17/2024 12.80 (H) 4.80 - 5.60 % Final LDL Cholesterol Date Value Ref Range Status 01/18/2024 140 (H) 0 - 100 mg/dL Final AST (SGOT) Date Value Ref Range Status 01/17/2024 15 1 - 32 U/L Final 01/17/2024 16 1 - 32 U/L Final ALT (SGPT) Date Value Ref Range Status 01/17/2024 7 1 - 33 U/L Final 01/17/2024 8 1 - 33 U/L Final Assessment / Plan Assessment/Plan: Diagnoses and all orders for this visit: 1. History of stroke (Primary) - Suspected MRI negative stroke in 01/2024. Suspected small vessel disease in etiology D/T uncontrolled risk factors - Continue aspirin 325 mg daily - Continue atorvastatin 80 mg nightly - Repeat carotid duplex was completed this morning which shows stability with no significant changes compared to prior study. Will plan to repeat carotid U/S in one year. - Heart healthy diet - BP goals less than 130/80. - Encouraged patient to stop smoking - Return to the ED with any additional stroke symptoms 2. Left carotid stenosis - CTA H/N in 01/2024 with left carotid stenosis of 70 to 80% - Continue aspirin 325 mg and Lipitor 80 mg -Emphasized importance of smoking cessation - Carotid duplex completed today is stable with no significant changes -Will plan to schedule next carotid duplex in one year 3. Type 2 diabetes mellitus with hyperglycemia, with long-term current use of insulin - Emphasized importance of better blood glucose management - Further management per PCP 4. Hyperlipidemia LDL goal <70 - LDL 140 in 01/2024 - Continue high-dose statin - Heart healthy diet - Further management per PCP 5. Essential hypertension - BP goals less than 130/80 - Avoid hypotension given left carotid stenosis Follow Up: Return in about 1 year (around 06/07/2026). Patient or patient commercial representative verbalized consent for the use of Ambient Listening during the visit with Karin Chang APRN for chart documentation. 06/08/2025 13:13 EDT Karin Chang APRN [facility] St[facility] documented in this encounter Plan of Treatment Upcoming Encounters Date Type Department Care Team (Late st Contact Info) Description 06/07/2026 11:00 AM EDT Office Visit [facility] [address] [place] [address] [address] [place] [id number] Karin Chang APRN [address] [facility] [address] [address] Scheduled Orders Name Type Priority Associated Diagnoses Order Schedule Duplex Carotid Ultrasound CAR Vascular Ultrasound Routine Left carotid stenosis Expected: 06/07/2026 (Approximate), Expires: 06/07/2026 documented as of this encounter Visit Diagnoses Diagnosis Left carotid stenosis- Primary documented in this encounter Care Teams Continuous Process Rotary Drum Tanner Relationship Specialty Start Date End Date Fer Reyez MD [address] [place] [address] PCP - General Family Medicine 05/31/24 documented as of this encounter
[2025-08-03 09:11] LABS: Hematocrit 34.9 % (37.0-47.0); Hemoglobin 11.5 g/dL (12.2-16.2); Immature Granulocytes % 1.1 %; Mean Corpuscular HGB Conc 33.0 g/dL (31.8-35.4); Mean Corpuscular Hemoglobin 30.0 pg (27.0-31.2); Mean Corpuscular Volume 91.1 fl (81-99); Nucleated Red Blood Cells % 0 %; Platelet Count 270 K/mm3 (142-424); Red Blood Count 3.83 M/mm3 (4.20-5.40); Red Cell Distribution Width-SD 44.3 fL; White Blood Count 6.1 K/mm3 (4.8-10.8)
--- OUTSIDE RECORDS SUMMARY | 2025-08-03 09:26 | XMS_ITS | Encounter Summary ---
[facility] Address [address] [place] [address] Care Team Providers Care Tunnel Miner Name Role Phone Fer Reyez MD Primary Care Provider +1- [phone] Encounter Details Date Type Department Care Team (Latest Contact Info) Description 06/07/2025 Travel Social History Tobacco Use Types Packs/Day Years Used Date Smoking Tobacco: Every Day Cigarettes Passive Smoke Exposure: Current Smokeless Tobacco: Never Comments:Pt states she smoke s 8 a day Alcohol Use Standard Drinks/Week [...] or training? Not on file Preferred Language Salvadorean 01/18/2024 PHQ-2 Answer Date Recorded Patient Health Questionnaire-2 Score 2 06/07/2025 Comments Unknown Sex and Gender Information Value Date Recorded Sex Assigned at Not on file Legal Sex Female 1:30 AM EST Gender Identity Not on file Sexual Orientation Not on file documented as of this encounter Functional Status documented as of this encounter Plan of Treatment Upcoming Encounters Date Type Department Care Team (Late st Contact Info) Description 06/07/2026 11:00 AM EDT Office Visit [facility] [address] [facility] [address] [place] [address] Karin Chang APRN [address] [facility] [address] [address] documented as of this encounter Visit Diagnoses Not on filedocumented in this encounter Care Teams Tunnel Miner Relationship Specialty Start Date End Date Fer Reyez MD [facility] [place] [id number] PCP - General Family Medicine 05/31/24 documented as of this encounter
--- OUTSIDE RECORDS SUMMARY | 2025-08-03 09:26 | XMS_ITS | Encounter Summary ---
[facility] [address] [place] [address] Care Team Providers Care Sugar Mixer Name Role Phone Fer Reyez MD Primary Care Provider +1- [phone] Encounter Details Date Type Department Care Team (Latest Contact Info) Description 06/05/2025 Travel Social History Tobacco Use Types Packs/Day [...] or training? Not on file Preferred Language Niuean 01/18/2024 PHQ-2 Answer Date Recorded Patient Health Questionnaire-2 Score 0 12/05/2024 Comments Unknown Sex and Gender Information Value Date Recorded Sex Assigned at Not on file Legal Sex Female 1:30 AM EST Gender Identity Not on file Sexual Orientation Not on file documented as of this encounter Plan of Treatment Upcoming Encounters Date Type Department Care Team (Late st Contact Info) Description 06/07/2026 11:00 AM EDT Office Visit [facility] [address] [place] [address] Karin Chang APRN [address] [place] [address] documented as of this encounter Visit Diagnoses Not on filedocumented in this encounter Care Teams Sugar Mixer Relationship Specialty Start Date End Date Fer Reyez MD [facility] [place] [id number] PCP - General Family Medicine 05/31/24 documented as of this encounter
--- OUTSIDE RECORDS SUMMARY | 2025-08-03 09:26 | XMS_ITS | Clinical Summary ---
Author Organization [facility] Address [address] [place] [address] Phone Care Team Providers Care Lab Assistant Name Role Phone Unavailable Primary Care Provider [...] on file Sexual Orientation Not on file Plan of Treatment Health Maintenance Due Date Last Done Comments Wellness Exam Medicare 1945 DTaP/TDaP/Td (1 - Tdap) 1961 Pneumococcal Vaccine 50+ (1 of 1 - PCV) 1992 Zoster (1 of 2) 1992 Bone Density Screening 2007 RSV or 60+ (1 - 1-d ose 75+ series) 2017 COVID-19 Vaccine (2024-2 6 season) 2025 Influenza Vaccine (#1) 2025 Hepatitis B Vaccine Aged Out No longe r eligible based on patient's age to complete this topic Meningococcal B Vaccine Aged Out No l onger eligible based on patient's age to complete this topic Insurance On license of [facility] [place]. KAI Turner [address] MEDICARE [place] PART A AND B
--- OUTSIDE RECORDS SUMMARY | 2025-08-03 09:26 | XMS_ITS | Clinical Summary ---
[facility] Address [address] [place] [address] Care Team Providers Care Drainage Engineer Name Role Phone Fer Reyez MD Primary Care Provider +1- [phone] Allergies No known active allergies Medications amLODIPine [...] per day 100 each 5 2 Active Additional Information Patient not taking.Reported on 06/07/2025 Lancets (onetouch ultrasoft) lancets Use to check blood glucose 3-4 times per day 200 each 12 2 Active Additional Information Patient not taking.Reported on 06/07/2025 busPIRone (BUSPAR) 5 MG tablet Take 1 [...] units in am 35 units in pm Active Additional Information Patient not taking.Reported on 06/07/2025 gabapentin (NEURONTIN) 300 MG capsuleIndicati ons:Numbness of right hand,Type 2 diabetes mellitus with hyperglycemia, with long-term current use of insulin Take 2 capsules by mouth Every 12 (Twelve) Hours. 6 capsule Active Additional Information Patient not taking.Reported on 06/07/2025 acetaminophen (TYLENOL) 500 MG tablet Take 1 [...] by mouth Daily. 5 12/08/19 26 Active escitalopram (LEXAPRO) 5 MG tablet 1 tablet. 5 Active ferrous sulfate 325 (65 FE) MG tablet 5 Active HYDROcodone-harish taminophen (NORCO) 5-325 MG per tablet 5 Active Januvia 50 MG tablet 5 Active Active Problems Problem Noted Date Diagnosed [...] 09/05/2022 Hypomagnesemia 09/05/2022 09/16/2022 Hypokalemia 09/05/2022 09/16/2022 Encounters Date Type Department Care Team Description 06/07/2025 9:00 AM EDT Office Visit [facility] [address] [place] [address] Karin Chang APRN Left carotid stenosis (Primary Dx) 06/07/2025 Travel 06/05/2025 11:00 AM EDT - 06/05/2025 11:59 PM EDT Hospital Encounter [facility] [address] [place] [address] Karin Chang APRN Left carotid stenosis Discharge Disposition: Home or Self Care 06/05/2025 Travel from Last 3 Months Family History Medical History Relation Name Comments [...] or training? Not on file Preferred Language Bahraini 01/18/2024 PHQ-2 Answer Date Recorded Patient Health [...] F) 06/07/2025 9:30 AM EDT Respiratory Rate 15 04/28/2024 10:50 AM EDT Oxygen Saturation 96% 06/07/2025 9:30 AM EDT Inhaled Oxygen Concentration - - Weight 91.6 kg (202 lb) 06/07/2025 9:30 AM EDT s tated Height 154.9 cm (5' 0.98 ) 06/07/2025 9:30 AM ED T Body Mass Index 38.19 06/07/2025 9:30 AM EDT Plan of Treatment Upcoming Encounters Date Type Department Care Team (Late st Contact Info) Description 06/07/2026 11:00 AM EDT Office Visit [facility] [address] [facility] [address] [place] [address] Karin Chang APRN [address] [facility] [address] [place] [address] Health Maintenance Due Date Last Done Comments DXA SCAN 1942 DIABETIC EYE EXAM 1952 DIABETIC FOOT EXAM 1952 URINE MICROALBUMIN-CREATININ E RATIO (uACR) 1952 TDAP/TD VACCINES (1 - Tdap) 1961 ZOSTER VACCINE (1 of 2) 1992 RSV Vaccine - Adults (1 - 1- dose 75+ series) 2017 COVID-19 Vaccine (3 - Modern a risk series) 02/07/2021 01/10/2021, 12/10/2020 ANNUAL WELLNESS VISIT 09/16/2022 HEMOGLOBIN A1C 07/18/2024 01/17/2024, 09/05/2022 LIPID PANEL 01/17/2025 01/18/2024, 09/05/2022 INFLUENZA VACCINE 05/04/2025 09/05/2020, , 08/10/2016, Additional history exists Pneumococcal Vaccine 50+ Completed 014, 06/15/2013, 07/19/2008 Procedures Procedure Name Priority Date/Time Associated Diagnosis Comments DUPLEX CAROTID BILATERAL CAR - PERFORMED PROCEDURE Routine 06/05/2025 11:48 AM EDT Left carotid stenosis LIPID PANEL Routine 01/18/2024 5:43 AM EDT HEMOGLOBIN A1C Add-On 01/17/2024 10:40 AM EDT from Last 3 Months or Most Recently Relevant to Health Maintenance Results * DUPLEX CAROTID BILATERAL CAR - [...] The study is technically good for diagnosis. Karin Chang APRN CV VASCULAR ORDERABLES Fin al Result * (ABNORMAL) Lipid Panel (01/18/2024 5:43 AM EDT) Total Cholesterol 228(H) 0 - 200 mg/dL 01/18/2024 6:22 AM EDT [facility] Triglycerides 248(H) 0 - 150 mg/dL 01/18/2024 6:22 AM EDT [facility] HDL Cholesterol 43 40 - 60 mg/dL 01/18/2024 6:22 AM EDT [facility] LDL Cholesterol 140(H) 0 - 100 mg/dL 01/18/2024 6:22 AM EDT [facility] VLDL Cholesterol 45(H) 5 - 40 mg/dL 01/18/2024 6:22 AM EDT [facility] LDL/HDL Ratio 3.15 01/18/2024 6:22 AM EDT [facility] Blood Venipuncture / Unknown 01/18/2024 5:43 AM EDT 01/18/2024 5:53 AM EDT Narrative [facility] - 01/18/2024 6:22 AM EDT Cholesterol [...] PA-C LAB BLOOD ORDERABLES Final R esult [facility]
[address] [place] [address], * (ABNORMAL) Hemoglobin A1c (01/17/2024 10:40 AM EDT) Hemoglobin A1C 12.80(H) 4.80 - 5.60 % 01/17/2024 2:07 PM EDT [facility] Blood Venipuncture / Unknown 01/17/2024 10:40 AM EDT 01/17/2024 10:44 AM EDT Narrative [facility] - 01/17/2024 2:07 PM EDT Hemoglobin A1C Ranges: Increased Risk for Diabetes 5.7% to 6.4% Diabetes >= 6.5% Diabetic Goal < 7.0% us Yobany Avendano MD LAB BLOOD ORDERABLES Final Res ult [facility]
[address] [place] [address], from Last 3 Months or Most Recently [...] Of Support Discussed With: Patient Care Teams Drainage Engineer Relationship Specialty Start Date End Date Fer Reyez MD [address] [place] [address] PCP - General Family Medicine 05/31/24
[2025-08-03 09:55] LABS: Albumin Level 3.5 g/dl (3.5-5.0); Chloride 104 mmol/L (98-107)
[2025-08-03 09:56] LABS: Potassium 4.3 mmoL/L (3.5-5.1); Sodium 135 mmol/L (136-145)
[2025-08-03 09:58] LABS: Alanine Aminotransferase 9 U/L (12-78); Aspartate Amino Transferase 20 U/L (14-36); Blood Urea Nitrogen 21 mg/dl (7-17); Creatinine,Serum 1.30 mg/dl (0.52-1.04); Estimated Glomerular Filt Rate 39 ml/min (>60); GFR (African American) 47 ML/MIN (>60)
[2025-08-03 09:59] LABS: Albumin/Globulin Ratio 1.5 (1.1-1.8); Alkaline Phosphatase 111 U/L (38-126); Anion Gap 7.3 mEq/L (5-15); Calcium 8.7 mg/dl (8.4-10.2); Carbon Dioxide 28 mmol/L (22.0-30.0); Cholesterol 123 mg/dl (140-200); Globulin 2.4 g/dL (1.3-3.2); Glucose 73 mg/dl (74-100); HDL Cholesterol 45 mg/dl (40-60); Total Protein,Serum 5.9 g/dl (6.3-8.2); Triglycerides 114 mg/dl (30-150)
[2025-08-03 10:18] LABS: Hemoglobin A1C 8.0 % (4.0-6.0)
[2025-08-03 10:20] LABS: Bilirubin,Total < 0.1 mg/dl (0.2-1.3)
== END 2025-08-03 23:59 | disposition home or self-care (01) ==
PROVIDERS: PCP Family Medicine; Visit Provider Family Medicine
DX: E11.9 Type 2 diabetes mellitus without complications (principal); D64.9 Anemia, unspecified
CPT/HCPCS: 36415; 80053; 80061; 83036; 85025

== ENCOUNTER 2025-08-09 09:40 | Outpatient (CLI) | payer MEDICARE, MEDICAID, SELFPAY ==
--- OUTSIDE RECORDS SUMMARY | 2025-08-09 09:44 | XMS_ITS | Clinical Summary ---
[facility] Address [address] [place] [address] Care Team Providers Care Fourdrinier Machine Operator Name Role Phone Fer Reyez MD Primary Care Provider +1- [phone] Allergies No known active allergies Medications amLODIPine [...] Description 06/07/2025 9:00 AM EDT Office Visit [facility] [address] [place] [address] Karin Chang APRN Left carotid stenosis (Primary Dx) 06/07/2025 Travel 06/05/2025 11:00 AM EDT - 06/05/2025 11:59 PM EDT Hospital Encounter [facility] [address] [place] [address] Karin Chang APRN Left carotid stenosis Discharge [...] or training? Not on file Preferred Language Mozambican 01/18/2024 PHQ-2 Answer Date Recorded Patient Health [...] Description 06/07/2026 11:00 AM EDT Office Visit [facility] [address] [facility] [address] [place] [address] Karin Chang APRN [address] [facility] [address] [place] [address] Health Maintenance Due Date Last Done Comments [...] - 200 mg/dL 01/18/2024 6:22 AM EDT [facility] Triglycerides 248(H) 0 - 150 mg/dL 01/18/2024 6:22 AM EDT [facility] HDL Cholesterol 43 40 - 60 mg/dL 01/18/2024 6:22 AM EDT [facility] LDL Cholesterol 140(H) 0 - 100 mg/dL 01/18/2024 6:22 AM EDT [facility] VLDL Cholesterol 45(H) 5 - 40 mg/dL 01/18/2024 6:22 AM EDT [facility] LDL/HDL Ratio 3.15 01/18/2024 6:22 AM EDT [facility] Blood Venipuncture / Unknown 01/18/2024 5:43 AM EDT 01/18/2024 5:53 AM EDT Narrative [facility] - 01/18/2024 6:22 AM EDT [...] PA-C LAB BLOOD ORDERABLES Final R esult [facility]
[address] [place] [address], * (ABNORMAL) Hemoglobin A1c (01/17/2024 10:40 AM EDT) Hemoglobin A1C 12.80(H) 4.80 - 5.60 % 01/17/2024 2:07 PM EDT [facility] Blood Venipuncture / Unknown 01/17/2024 10:40 AM EDT 01/17/2024 10:44 AM EDT Narrative [facility] - 01/17/2024 2:07 PM EDT Hemoglobin A1C Ranges: Increased Risk for Diabetes 5.7% to 6.4% Diabetes >= 6.5% Diabetic Goal < 7.0% us Yobany Avendano MD LAB BLOOD ORDERABLES Final Res ult [facility]
[address] [place] [address], from Last 3 Months or Most Recently [...] Of Support Discussed With: Patient Care Teams Fourdrinier Machine Operator Relationship Specialty Start Date End Date Fer Reyez MD [address] [place] [address] PCP - General Family Medicine 05/31/24
--- OUTSIDE RECORDS SUMMARY | 2025-08-09 09:44 | XMS_ITS | Data Portability ---
Author Organization [facility] Medicine and [facility] Address [address] [place] [address] Assessment Encounter Date Assessment Date Assessment LastModified by Organization Details LastModified Time 10/01/2022 10/01/2022 PATIENT TO CONTINUE WITH HOME HEALTH PHYSICAL THERAPY AND OCCUPATIONAL THERAPY DISCUSSED. SHE HAS BEEN INSTRUCTED TO FOLLOW-UP WITH US IN 1-3 MONTHS. [email or web address] Not available 10/01/2022 11:59:20 12/30/2022 12/30/2022 Patient is unclear as to which medications she is actually taking. We will attempt to streamline her medications. Patient has been advised to call the office or come in with her pill bottles. [email or web address] Not available 12/30/2022 14:47:22 Plan of Treatment Reminders Order Date Submit Date Provider Last Modified By Organization Details Last Modified Time Details Appointments None recorded. Lab TSH, serum or plasma 2022 023 [facility] (Laboratory), [address] [place], [address], 3 17:00:09 CMP, serum or plasma 2022 023 [facility] (Laboratory), [place], [address], 3 17:01:16 CBC w/ auto diff 2022 023 [facility] (Laboratory), [address] [place], [address], 3 16:41:45 HbA1c (hemoglobin A1c), blood 2022 023 [facility] (Laboratory), [address] [place] [address] [place], [address], 3 17:16:33 lipid panel, serum 2022 023 [facility] (Laboratory), [address] [place], [address], 3 17:01:17 Referral None recorded. Procedures None recorded. Surgeries None recorded. Imaging CT, head + brain, w/o contrast 2022 023 [facility], [address] [place], [address], 3 07:34:35 Medication Orders pantoprazol e 40 mg tablet,yovani yed release 2022 023 [facility], [address] [place] [address], [id number], 3 16:18:03 buspirone 5 mg tablet 2022 023 [facility], [address] [place] [address], [id number], 3 17:46:51 Celebrex 100 mg capsule 2022 023 [facility], [address] [place] [address], [id number], 3 14:31:56 hydrocodone 5 mg-acetamin ophen 325 mg tablet 2022 023 [facility], [address] [place] [address], [id number], 3 14:32:31 gabapentin 600 mg tablet 2021 022 [facility], [address] [place] [address], [id number], 2 15:51:02 hydrocodone 5 mg-acetamin ophen 325 mg tablet 2021 022 [facility], [address] [place] [address], [id number], 3 14:32:31 Patient TargetsNo targets recorded. Patient InstructionsNo instructions recorded. Reason for Referral None Reported. Results Created Date Observation Date Name Description Value Unit Range Abnormal Flag Note LastModifiedBy Organization Detail LastModifiedTime 06/18/2006/18/2023 CBC AUTO W DIFF WBC 6.2 10 4.5-11 .5 Not Available [facility] (Lab Registration) [address] [place], [address], 06/18/2023 16:41:45 06/18/20 23 06/18/2023 CBC AUTO W DIFF RBC 4.60 10 4.25-5 .57 Not Available [facility] (Lab Registration) [address] [place], [address], 06/18/2023 16:41:45 06/18/20 23 06/18/2023 CBC AUTO W DIFF HGB 13.2 g/dL 12.0-1 5.7 Not Available [facility] (Lab Registration) [address] [place], [address], 06/18/2023 16:41:45 06/18/20 23 06/18/2023 CBC AUTO W DIFF HCT 38.3 % 36.0-4 7.0 Not Available [facility] (Lab Registration) [address] [place], [address], 06/18/2023 16:41:45 06/18/20 23 06/18/2023 CBC AUTO W DIFF MCV 83.3 fL 80-95 Not Available [facility] (Lab Registration) [address] [place], [address], 06/18/2023 16:41:45 06/18/20 23 06/18/2023 CBC AUTO W DIFF MCH 28.7 pg 27.0-3 4.0 Not Available [facility] (Lab Registration) [address], [place], [address], 06/18/2023 16:41:45 06/18/20 23 06/18/2023 CBC AUTO W DIFF MCHC 34.5 g/dL 32.0-3 6.0 Not Available [facility] (Lab Registration) [address] [place], [address], 06/18/2023 16:41:45 06/18/20 23 06/18/2023 CBC AUTO W DIFF platelet count 298 10 150-45 0 Not Available [facility] (Lab Registration) [address] [place], [address], 06/18/2023 16:41:45 06/18/20 23 06/18/2023 CBC AUTO W DIFF RDW 13.1 % 12.3-1 5.1 Not Available [facility] (Lab Registration) [address] [place], [address], 06/18/2023 16:41:45 06/18/20 23 06/18/2023 CBC AUTO W DIFF MPV 9.6 fL 7.4-10 .4 Not Available [facility] (Lab Registration) [address] [place], [address], 06/18/2023 16:41:45 06/18/20 23 06/18/2023 CBC AUTO W DIFF granulocyte% 63.3 % 40-75 Not Available [facility] (Lab Registration) [address] [place], [address], 06/18/2023 16:41:45 06/18/20 23 06/18/2023 CBC AUTO W DIFF lymphocyte% 26.9 % 15-57 Not Available [facility] (Lab Registration) [address] [place], [address], 06/18/2023 16:41:45 06/18/20 23 06/18/2023 CBC AUTO W DIFF monocyte% 6.3 % 4.0-12 .0 Not Available [facility] (Lab Registration) [address], [place], [address], 06/18/2023 16:41:45 06/18/20 23 06/18/2023 CBC AUTO W DIFF eosinophil% 1.9 % 0.0-4. 0 Not Available [facility] (Lab Registration) [address] [place], [address], 06/18/2023 16:41:45 06/18/20 23 06/18/2023 CBC AUTO W DIFF basophil% 0.3 % 0.0-1. 0 Not Available [facility] (Lab Registration) [address] [place], [address], 06/18/2023 16:41:45 06/18/20 23 06/18/2023 CBC AUTO W DIFF immature granulocytes % 1.3 % 0.0-0. 8 high Not Available [facility] (Lab Registration) [address] [place], [address], 06/18/2023 16:41:45 06/18/20 23 06/18/2023 CBC AUTO W DIFF granulocyte# 3.95 10 Not Available [facility] (Lab Registration) [address] [place], [address], 06/18/2023 16:41:45 06/18/20 23 06/18/2023 CBC AUTO W DIFF lymphocyte# 1.68 10 Not Available [facility] (Lab Registration) [address] [place], [address], 06/18/2023 16:41:45 06/18/20 23 06/18/2023 CBC AUTO W DIFF monocyte# 0.39 10 Not Available [facility] (Lab Registration) [address] [place], [address], 06/18/2023 16:41:45 06/18/20 23 06/18/2023 CBC AUTO W DIFF eosinophil# 0.12 10 Not Available [facility] (Lab Registration) [address] [place], [address], 06/18/2023 16:41:45 06/18/20 23 06/18/2023 CBC AUTO W DIFF basophil# 0.02 10 Not Available [facility] (Lab Registration) [address] [place], [address], 06/18/2023 16:41:45 06/18/20 23 06/18/2023 CBC AUTO W DIFF immature granulocytes # 0.08 10 Not Available [facility] (Lab Registration) [address] [place], [address], 06/18/2023 16:41:45 06/18/20 23 06/18/2023 CBC AUTO W DIFF manual differential NO Not Available [facility] (Lab Registration) [address] [place], [address], 06/18/2023 16:41:45 06/18/20 23 06/18/2023 CBC AUTO W DIFF note Unles s other jara noted testi ng perfo rmed at: [facility] [address] [place] [address] [phone] Ag adams MD CLIA: [id number] Not Available [facility] (Lab Registration) [address] [place], [address], 06/18/2023 16:41:45 06/18/20 23 06/18/2023 THYRO ID STIMU LATIN G HORMO NE thyroid stimulating hormone 1.83 mIU/m L 0.34-4 .80 Not Available [facility] (Lab Registration) [address] [place], [address], 06/18/2023 17:00:09 06/18/20 23 06/18/2023 THYRO ID STIMU LATIN G HORMO NE note Unles s other jara noted testi ng perfo rmed at: [facility] [address] [place] [address] [phone] Ag adams MD CLIA: [id number] Not Available [facility] (Lab Registration) [address] [place], [address], 06/18/2023 17:00:09 06/18/20 23 06/18/2023 COMP METAB OLIC PANEL sodium 137 mmol/ L 136-14 5 Not Available [facility] (Lab Registration) [address] [place], [address], 06/18/2023 17:01:16 06/18/20 23 06/18/2023 COMP METAB OLIC PANEL potassium 4.4 mmol/ L 3.5-5. 1 Not Available [facility] (Lab Registration) [address] [place], [address], 06/18/2023 17:01:16 06/18/20 23 06/18/2023 COMP METAB OLIC PANEL chloride 98 mmol/ L 98-107 Not Available [facility] (Lab Registration) [address] [place], [address], 06/18/2023 17:01:16 06/18/20 23 06/18/2023 COMP METAB OLIC PANEL carbon dioxide 24 mmol/ L 21-32 Not Available [facility] (Lab Registration) [address] [place], [address], 06/18/2023 17:01:16 06/18/20 23 06/18/2023 COMP METAB OLIC PANEL anion gap 15.0 Not Available [facility] (Lab Registration) [address] [place], [address], 06/18/2023 17:01:16 06/18/20 23 06/18/2023 COMP METAB OLIC PANEL glucose 370 mg/dL 70-110 high Not Available [facility] (Lab Registration) [address] [place], [address], 06/18/2023 17:01:16 06/18/20 23 06/18/2023 COMP METAB OLIC PANEL blood urea nitrogen 14 mg/dL 7-18 Not Available [facility] (Lab Registration) [address] [place], [address], 06/18/2023 17:01:16 06/18/20 23 06/18/2023 COMP METAB OLIC PANEL creatinine 1.1 mg/dL 0.6-1. 0 high Not Available [facility] (Lab Registration) [address] [place], [address], 06/18/2023 17:01:16 06/18/20 23 06/18/2023 COMP METAB OLIC PANEL BUN/creatini ne ratio 12.7 ratio 9-21 Not Available [facility] (Lab Registration) [address] [place], [address], 06/18/2023 17:01:16 06/18/20 23 06/18/2023 COMP METAB OLIC PANEL estimated glom filtration rate 51 mL/mi n >60- low Not Available [facility] (Lab Registration) [address] [place], [address], 06/18/2023 17:01:16 06/18/20 23 06/18/2023 COMP METAB OLIC PANEL total protein 7.0 g/dL 6.4-8. 2 Not Available [facility] (Lab Registration) [address] [place], [address], 06/18/2023 17:01:16 06/18/20 23 06/18/2023 COMP METAB OLIC PANEL albumin 3.4 g/dL 3.4-5. 0 Not Available [facility] (Lab Registration) [address] [place], [address], 06/18/2023 17:01:16 06/18/20 23 06/18/2023 COMP METAB OLIC PANEL calcium 9.3 mg/dL 8.5-10 .1 Not Available [facility] (Lab Registration) [address] [place], [address], 06/18/2023 17:01:16 06/18/20 23 06/18/2023 COMP METAB OLIC PANEL corrected calcium 9.8 mg/dL 8.5-10 .1 Not Available [facility] (Lab Registration) [address], [place], [address], 06/18/2023 17:01:16 06/18/20 23 06/18/2023 COMP METAB OLIC PANEL bilirubin total 0.4 mg/dL 0.4-1. 5 Not Available [facility] (Lab Registration) [address] [place], [address], 06/18/2023 17:01:16 06/18/20 23 06/18/2023 COMP METAB OLIC PANEL AST (SGOT) 14 U/L 15-37 low Not Available [facility] (Lab Registration) [address] [place], [address], 06/18/2023 17:01:16 06/18/20 23 06/18/2023 COMP METAB OLIC PANEL ALT (SGPT) 21 U/L 12-78 Not Available [facility] (Lab Registration) [address], [place], [address], 06/18/2023 17:01:16 06/18/20 23 06/18/2023 COMP METAB OLIC PANEL alk phosphatase 133 U/L 53-141 Not Available [facility] (Lab Registration) [address] [place], [address], 06/18/2023 17:01:16 06/18/20 23 06/18/2023 COMP METAB OLIC PANEL note Unles s other jara noted testi ng perfo rmed at: [facility] [address] [place] [address] [phone] Ag adams MD CLIA: [id number] Not Available [facility] (Lab Registration) [address] [place], [address], 06/18/2023 17:01:16 06/18/20 23 06/18/2023 LIPID PANEL triglyceride 155 mg/dL 20-200 The [employer]io n[employer] t[employer] am (NCEP ) has set the follo wing guide lines for Fasti ng Trigl yceri cat: OLIVERIO L: <150 mg/dL BORDE RLINE HIGH: 150 - 199 mg/dL HIGH: 200 - 499 mg/dL VERY HIGH: > or =500 mg/dL Not Available [facility] (Lab Registration) [address] [place], [address], 06/18/2023 17:01:17 06/18/2006/18/2023 LIPID PANEL cholesterol 184 mg/dL 0-200 The [employer]io n[employer]ca t[employer]gr am (NCEP ) has set the follo wing guide lines for Fasti ng Kirstin stero l: EDWIN ABLE: <200 mg/dL BORDE RLINE HIGH: 200 - 239 mg/dL HIGH: > or =240 mg/dL Not Available [facility] (Lab Registration) [address] [place], [address], 06/18/2023 17:01:17 06/18/2006/18/2023 LIPID PANEL HDL cholesterol 64 mg/dL 60- The Natio nal [employer]ca t[employer]gr am (NCEP ) has set the follo wing guide lines for Fasti ng HDL Kirstin stero l: LOW HDL: <40 mg/dL OLIVERIO L: 40 - 60 mg/dL EDWIN ABLE: >60 mg/dL Not Available [facility] (Lab Registration) [address] [place], [address], 06/18/2023 17:01:17 06/18/2006/18/2023 LIPID PANEL LDL calculated 89 mg/dL 100- low The [employer]io n[employer]ca t[employer]gr am (NCEP ) has set the follo wing guide lines for Fasti ng LDL Kirstin stero l: OPTIM AL: < 100 mg/dL LOW RISK: 100 - 129 mg/dL BORDE RLINE HIGH: 130 - 159 mg/dL HIGH: 160 - 189 mg/dL VERY HIGH: > or = 190 mg/dL Not Available [facility] (Lab Registration) [address] [place], [address], 06/18/2023 17:01:17 06/18/20 23 06/18/2023 LIPID PANEL chol/HDL ratio 3 ratio -5 Not Available [facility] (Lab Registration) [address] [place], [address], 06/18/2023 17:01:17 06/18/20 23 06/18/2023 LIPID PANEL note Unles s other jara noted testi ng perfo rmed at: [facility] [address] [place] [address] [phone] Ag adams MD CLIA: [id number] Not Available [facility] (Lab Registration) [address] [place], [address], 06/18/2023 17:01:17 06/18/20 23 06/18/2023 HEMOG LOBIN A1C glycosylated hemoglobin A1C 11.7 % 4.5-6. 2 high Verif ied by pari vail. Not Available [facility] (Lab Registration) [address] [place], [address], 06/18/2023 17:16:32 06/18/20 23 06/18/2023 HEMOG LOBIN A1C estimated average glucose 289 mg/dL 82-131 high Not Available [facility] (Lab Registration) [address] [place], [address], 06/18/2023 17:16:32 06/18/20 23 06/18/2023 HEMOG LOBIN A1C note Unles s other jara noted testi ng perfo rmed at: [facility] [address] [place] [phone] Ag adams MD CLIA: [id number] Not Available [facility] (Lab Registration) [address] , [place], [address], 06/18/2023 17:16:32 Result Notes None recorded. 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 Active 2021 Marion [place] [facility] [place] 2 11:49:45 Essential hypertension 69398130 Active 2021 Marion P[place] [facility] [place] 2 11:50:08 Gastroesophag eal reflux disease 933993938 Active 2021 Marion P[place] [facility] [place] 2 11:50:15 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 Procedures Surgical History Date Name Laterality Status Provider Name and Address Organization Details Recorded Time 09/07/20 Tonsillectomy completed Deyvi QUINN - [facility] - [place] [facility] [place] 06/24/2022 09:19:12 Cataract Surgery completed Deyvi CHAVEZ [facility] & [place] 06/24/2022 09:18:27 Cholecystectomy completed Deyvi CHAVEZ [facility] & [place] 06/24/2022 09:18:49 Tubal Ligation completed Deyvi CHAVEZ [facility] & [place] 06/24/2022 09:19:27 Colonoscopy completed Deyvi Thomson LP [facility] & [place] 06/24/2022 09:20:36 excision of lipoma completed Deyvi CHAVEZ [facility] & [place] 06/24/2022 09:20:10 Imaging Results None recorded. Procedure Notes None recorded. Medical Equipment None Reported. Allergies Allergen ID Allergen Name Allergen Category Reaction Reaction Severity Criticality Documentation Date Start Date Code Code System Note Provider Name and Address Organization Details Recorded Time 54084 Ultram medicatio n itching Not available Not available 06/24/2022 57826 6 RxNorm KAI Zhong [facility] & [place] 2 09:00:07 26776 Product containin g angiotens in-conver ting enzyme inhibitor (product) medicatio n Not available Not available Not available 06/24/2022 64645 009 [facility]ED [facility] [place] 2 09:00:16 88914 lisinopri l medicatio n Not available Not available Not available 06/24/2022 16820 [facility] [place] 2 09:00:22 Medications Name Sig Start Date Stop Date Status Note LastModified by Organization Details LastModified Time amantadine HCl 100 mg tablet Take 1 tablet every day by oral route. active Not Available Not Available No t Available Humalog Mix 75-25 (U-100) Insulin 100 unit/mL subcutaneou s suspension INJECT 45 UNITS SUB-Q EVERY MORNING AND INJECT 35 UNITS SUB-Q EVERY EVENING active Not Available Not Available No t Available buspirone 5 mg tablet Take 1 tablet twice a day by oral route. 2023 active Not Available Not Available Not Avai lable atorvastati n 80 mg tablet Take 1/2 tablets by mouth Every Night. active Not Available Not Available No t Available carvedilol 6.25 mg tablet TAKE ONE TABLET BY MOUTH TWICE DAILY active Not Available Not Available No t Available gabapentin 600 mg tablet Take 1 tablet 3 times a day by oral route for 90 days. 2022 active Not Available Not Available Not Avai lable torsemide 20 mg tablet TAKE ONE TABLET BY MOUTH ONCE DAILY DIRECTED active Not Available Not Available No t Available hydrocodone 5 mg-acetamin ophen 325 mg tablet Take 1/2 tablets twice a day by oral route for 5 days. 12/30 completed Not Available Not Available Not Available ondansetron HCl 8 mg tablet take 1 tablet by mouth three times daily as needed for 15 day(s) 12/30 completed Not Available Not Available Not Available sertraline 100 mg tablet Take 1 tablet every day by oral route. active Not Available Not Available No t Available acetaminoph en 300 mg-codeine 30 mg tablet TAKE ONE TABLET BY MOUTH EVERY EIGHT HOURS NEEDED FOR SEVEN DAYS 12/30 completed Not Available Not Available Not Available clopidogrel 75 mg tablet Take 1 tablet by mouth Daily 2023 active Not Available Not Available Not Avai lable amlodipine 5 mg tablet TAKE ONE TABLET BY MOUTH EVERY MORNING active Not Available Not Available No t Available ciprofloxac in 500 mg tablet take 1 tablet by ORAL route every 12 hours for 7 days 12/30 completed Not Available Not Available Not Available amantadine HCl 100 mg capsule TAKE ONE CAPSULE ONCE DAILY 10/22 completed Not Available Not Available Not Available ondansetron 8 mg disintegrat ing tablet Place 1 tablet 3 times a day by transling ual route as needed. 12/30 completed Not Available Not Available Not Available meloxicam 7.5 mg tablet TAKE ONE TABLET BY MOUTH ONCE DAILY 06/18 completed Not Available Not Available Not Available Acetaminoph en-Codeine #3 300 mg-30 mg tablet Take 1 tablet every 8 hours by oral route as needed. 06/24 completed Not Available Not Available Not Available famotidine 20 mg tablet TAKE ONE TABLET BY MOUTH TWICE DAILY active Not Available Not Available No t Available pravastatin 80 mg tablet Take 1 tablet every day by oral route at bedtime. active Not Available Not Available No t Available OneTouch Ultra Test strips Use to check blood glucose 3-4 times per day active Not Available Not Available No t Available pantoprazol e 40 mg tablet,yovani trujillod release Take 1 tablet BY MOUTH every day for 30 days. 2023 active Not Available Not Available Not Avai lable omeprazole 20 mg capsule,del ayed release TAKE ONE CAPSULE BY MOUTH EVERY DAY 12/30 completed Not Available Not Available Not Available aspirin 81 mg chewable tablet Chew 1 tablet Daily. active Not Available Not Available No t Available furosemide 20 mg tablet Take 1 tablet every day by oral route in the morning. 12/30 completed Not Available Not Available Not Available nystatin 100,000 unit/gram topical powder Apply topically to the appropria te area as directed Every 12 (Twelve) Hours. active Not Available Not Available No t Available celecoxib 100 mg capsule Take 1 capsule every day by oral route. 12/30 completed Not Available Not Available Not Available carbidopa 25 mg-levodopa 100 mg tablet Take 1 tablet(s) BY MOUTH twice a day 2023 active Not Available Not Available Not Avai lable cholecalcif elma (vitamin D3) 10 mcg (400 unit) tablet TAKE ONE TABLET BY MOUTH DAILY active Not Available Not Available No t Available insulin syringe U-100 with needle 0.5 mL 29 gauge x 1/2 Use to administe r insulin two times per day active Not Available Not Available No t Available olmesartan 40 mg tablet Take 1 tablet every day by oral route. active Not Available Not Available No t Available insulin lispro protamine-l ispro 100 unit/mL (75-25) subcutaneou s pen Inject by subcutane ous route. active Not Available Not Available No t Available Novolog Mix 70-30 FlexPen U-100 Insulin 100 unit/mL subcutaneou s pen 45 units every morning, 35 units every evening subcutane ous, as directed 2021 active Not Available Not Available Not Avai lable hydrocodone -acetaminop hen 5-325MG take one tablet as needed once a day 06/24 completed Not Available Not Available Not Available Easy Touch Insulin Syringe 1 mL 29 gauge x 1/2 USE DIRECTED TWICE DAILY active Not Available Not Available No t Available Easy Touch Insulin Syringe 1 mL 30 gauge x 1/2 USE DIRECTED TWICE DAILY active Not Available Not Available No t Available Janumet 50 mg-1,000 mg tablet TAKE ONE TABLET BY MOUTH TWICE DAILY active Not Available Not Available No t Available OneTouch Ultra2 Meter use As Needed (to check blood glucose). active Not Available Not Available No t Available OneTouch Delica Plus Lancet 33 gauge Use to check blood glucose 3-4 times per day active Not Available Not Available No t Available Vitals Date Recorded Body height Body mass index (BMI) Body weight Body temperature Oxygen saturation Oxygen saturation in Arterial blood by Pulse oximetry Heart rate Respiratory rate Systolic And Diastolic Provider Name and Address Organization Details Last Updated DateTime 3 153.67 cm 32 kg/m2 78535.2 1 g 97.3 [degF] 97 % 97 % 95 /min 18 /min 147/71 mm[Hg] Marion Shahabdini [place] - [facility] & [place] 3 15:01:27 Date Recorded Body height Body mass index (BMI) Body weight Body temperature Oxygen saturation Oxygen saturation in Arterial blood by Pulse oximetry Heart rate Respiratory rate Systolic And Diastolic Provider Name and Address Organization Details Last Updated DateTime 3 153.67 cm 36.2 kg/m2 53463.8 g 97 [degF] 97 % 97 % 71 /min 18 /min 141/63 mm[Hg] Marion Shahabdini [place] - [facility] & [place] 3 14:31:21 Date Recorded Body height Body mass index (BMI) Body weight Body temperature Oxygen saturation Oxygen saturation in Arterial blood by Pulse oximetry Heart rate Respiratory rate Systolic And Diastolic Provider Name and Address Organization Details Last Updated DateTime 3 153.67 cm 34.3 kg/m2 63449.8 8 g 97.3 [degF] 97 % 97 % 78 /min 16 /min 166/83 mm[Hg] Marion Shahabdini [place] - [facility] & [place] 3 14:34:41 Date Recorded Body height Body mass index (BMI) Body weight Body temperature Oxygen saturation Oxygen saturation in Arterial blood by Pulse oximetry Heart rate Systolic And Diastolic Provider Name and Address Organization Details Last Updated DateTime 2 153.67 cm 34.1 kg/m2 04878 g 97.2 [degF] 98 % 98 % 76 /min 158/79 mm[Hg] Marion Pardini [place] - [facility] & [place] 2 14:41:13 Date Recorded Body height Body mass index (BMI) Body weight Body temperature Oxygen saturation Oxygen saturation in Arterial blood by Pulse oximetry Heart rate Respiratory rate Systolic And Diastolic Provider Name and Address Organization Details Last Updated DateTime 2 153.67 cm 33 kg/m2 43743.8 9 g 97.2 [degF] 98 % 98 % 95 /min 18 /min 156/82 mm[Hg] Marion Ruiz [facility] & [place] 2 11:47:51 Social History Question Answer Notes LastModified by [employer] Details LastModified Time Tobacco Smoking Status Current Every Day Smoker Deyvi Storm ceci [facility] & [place] 06/24/2022 09:15:32 How Much Tobacco Do You Smoke? 1 PPD Information not available 06/24/2022 Has Tobacco Cessation Counseling Been Provided? Yes Information not available 06/24/2022 Sex: Unknown Functional Status Question Answer Note LastModified by [employer] Details LastModified Time Do you use any illicit or recreational drugs? No [email or web address] Information not available 06/24/2022 Do you or have you ever used any other forms of tobacco or nicotine? No Information not available 06/24/2022 What is your level of alcohol consumption? None [email or web address] Information not available 06/24/2022 Mental Status None recorded. Family History Relationship Description Onset Age of this Age Resolved Age Notes LastModified by Organization Details LastModified Time Mother Alzheimer's disease 87 [email or web address] Not available 2021 09:11:36 Mother Malignant neoplasm of female breast [email or web address] Not available 2021 09:11:49 Mother Hypertensive disorder Not available 2021 09:12:02 Sister Malignant neoplasm of female breast Deceas ed [email or web address] Not available 06/24/2022 09:13:23 Sister Malignant neoplasm of female breast Dece ed [email or web address] Not available 06/24/2022 09:14:13 Son Alcoholism Deceas ed [email or web address] Not available 06/24/2022 09:14:47 Notes:Father - Unknown at 89 years Medical History Condition Response Coronary Artery Disease N Other N Gout N Kidney Stones N Blood Diseases N Hyperthyroidism N Breast Cancer N Blood Transfusion N Hypothyroidism N Depression N COPD N Lung Disease N Defects or Inherited Disease N Developmental or Behavioral Disorders N Breast Problem N Difficulty Swallowing N Anesthesia Complications N Anxiety Disorder N Meniere's disease N Muscle, Joint, or Bone Problems N Vision or Eye Problems N Arthritis N Polyps N Infertility N Cancer N Varicosities N Stroke N Endometriosis N Bladder or Kidney Problems N High Cholesterol N Liver Disease N Headaches N Fibromyalgia N Kidney Disease N Allergies/Hayfever N Heart Problems N Ear or Hearing Problems N Hospitalizations N Thyroid Problems N GI Problems N ADD/ADHD N Skin Problems N Eating Disorder N Anemia N Constipation N Mental Illness N Ovarian Cancer N Diabetes Y Bedwetting N Seizures/Epilepsy N Tuberculosis N Eczema N Diverticulitis N Abuse/Domestic Violence N Asthma N Reflux/GERD N Hepatitis N Heart Disease N Pulmonary Embolism N Chronic Ear Infections N Pre-Eclampsia N Hypertension Y Chicken Pox N Autism Spectrum Disorder (ASD) N Osteoporosis N Thrombophilias N Gynecological HistoryNo gynecological history recorded. Obstetrics History GPAL:G 0 P 0 0 0 0 Immunizations Vaccine Type Date Status Note Provider Nam e and Address Organization Details Recorded Time Influenza, adjuvanted, quadrivalent, PF 0 completed Marion [place] [facility] - [facility] 10/01/2022 11:48:09 pneumococcal polysaccharide PPV23 4 completed Marion [place] [facility] - [facility] 10/01/2022 11:48:09 Influenza, high-dose, trivalent, PF 3 completed [place] [facility] - [facility] 10/01/2022 11:48:09 Influenza, high-dose, trivalent, PF 6 completed [place] [facility] - [facility] 10/01/2022 11:48:09 COVID-19, mRNA, LNP-S, PF, 100 mcg/0.5mL dose or 50 mcg/0.25mL dose 1 completed Marion Pard[place] [facility] - [place] [facility] [place] 10/01/2022 11:48:09 Influenza, adjuvanted, trivalent, PF 9 completed [place] [facility] [facility] [place] 10/01/2022 11:48:09 Pneumococcal conjugate PCV 13 3 completed Marion P[place] [facility] [facility] [place] 10/01/2022 11:48:09 Influenza, split virus, trivalent, preservative 0 completed Marion [place] [facility] [place] 10/01/2022 11:48:09 Influenza, split virus, trivalent, preservative 9 completed [place] [facility] [place] 10/01/2022 11:48:09 Influenza, split virus, trivalent, preservative 8 completed [place] [facility] [place] 10/01/2022 11:48:09 COVID-19, mRNA, LNP-S, PF, 100 mcg/0.5mL dose or 50 mcg/0.25mL dose 1 completed Marion [place]ard[place] [facility] [facility] [place] 10/01/2022 11:48:09 Influenza, high-dose, trivalent, PF 4 completed [place] [facility] [place] 10/01/2022 11:48:09 Influenza, high-dose, trivalent, PF 2 completed [place] [facility] [place] 10/01/2022 11:48:09 pneumococcal polysaccharide PPV23 8 completed Marion Pard[place] [facility] [facility] [place] 10/01/2022 11:48:09 Past Encounters Encounter ID Performer Location Encounter Start Date Encounter Closed Date Diagnosis/Indication Diagnosis SNOMED-CT Code Diagnosis ICD10 Code Diagnosis IMO Codes Diagnosis Note [id number] Brando Castro MD [email or web address] [address] 06/24/2022 14:31:50 06/24/2022 15:24:54 Type 2 diabetes mellitus 26793219 E11.21 stable. Will obtain lab work at next visit Essential hypertension 92214104 I10 controlled Chronic ki dney disease 766051209 N18.9 stable. 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 She takes gabapentin with hydrocodon e as needed. Gastroesop hageal reflux disease 451844373 K21.9 controlled with omeprazole Onychomyco sis of toenails 691996799 B35.1 patient has been referred to Podiatry. Verbal referral made, patient has been informed that her appointmen t is on July 02 at 8:30 a.m. in the morning. [facility] [id number] MD suzanna Rockwell[address] [address] 10/01/2022 11:41:00 10/01/2022 12:02:50 Congestive heart failure 37633070 I50.9 CONTINUE TO FOLLOW-UP WITH CARDIOLOGY . 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 WILL ATTEMPT TO TREAT PATIENT WITH CELEBREX AND HYDROCODON E FOR NOW. PATIENT HAS BEEN INSTRUCTED TO GO TO THE EMERGENCY DEPARTMENT SHOULD SYMPTOMS WORSEN. IF PAIN IS STILL PRESENT IN A WEEK SHE DOES AGREE TO GET X-RAYS. [id number] MD suzanna Rockwell[address] [address] 12/30/2022 14:10:20 12/30/2022 14:47:57 Chronic low back pain 467902066 M54.50 Will add hydrocodon e to patient's regimen she has been instructed to use this as needed. Essential hypertension 27896717 I10 controlled Arthritis 1066666 M19.90 STABLE Congestive heart failure 89813209 I50.9 CONTINUE TO FOLLOW-UP WITH CARDIOLOGY . 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 Will Order a CT scan of the head today. patient has been notified that if her symptoms worsen she needs to go to the emergency department as soon as possible Congestive heart failure 65962163 I50.9 CONTINUE TO FOLLOW-UP WITH CARDIOLOGY . Essential hypertension 73190504 I10 controlled Gastroesop hageal reflux disease 147530424 K21.9 controlled with omeprazole Diabetes mellitus 901320 09 E11.9 patient has been noncomplia nt with her insulin. Will obtain lab work today. Health Concerns Section Related Observation LastModified by Organization Detai ls LastModified Time None Recorded Concern Status LastModified by Organization Details LastModified Time None Recorded Advance Directives Directive None Recorded Payers Insurance Date Sequence Insurance Name Policy Number Policy Thakur Covered Member ID Thakur Member ID Guarantor Name 10/20/2022 1 [employer] (MEDICARE REPLACEMENT/AD VANTAGE - PPO) Erika Webster Dc [id number] Erika Webster Dc 10/20/2022 1 [place]MED[place]AC[place]/AD VANTAGE - HMO) [id number] Erika Webster Dc [id number] Erika Webster Dc 10/20/2022 1 [employer] (MEDICARE REPLACEMENT/AD VANTAGE - HMO) Erika Webster Dc [id number] Erika Webster Dc 10/20/2022 1 [place] [place] FFS/TRADITIONA L Erika Webster Dc [id number] Erika Webster Dc 04/22/2024 2 WELL[employer]ARE MD (MEDICAID HMO) Erika Webster Dc [id number] Erika Irwin 10/20/2022 2 [place] [facility] CHOICES - FFS/TRADITIONA L Erika Irwin [id number] Erika Irwin 10/20/2022 2 [facility] COMMUNITY PLAN (MEDICARE REPLACEMENT/AD VANTAGE - HMO) Erika Irwin [id number] Erika Irwin 04/22/2024 1 [place] (MEDICARE REPLACEMENT HMO) [id number] Erika Irwin [id number] Erika Irwin 10/20/2022 1 [facility] KAIDSNP Erika Irwin [id number] Erika Irwin 10/20/2022 1 [employer] - GOLD PLUS (MEDICARE REPLACEMENT/AD VANTAGE - HMO) Erika Irwin [id number] Erika Irwin 10/20/2022 1 [place] Erika Irwin [id number] Erika Irwin 10/20/2022 1 [facility] COMMUNITY PLAN (MEDICARE REPLACEMENT/AD VANTAGE - HMO) AXEL Irwin [id number] Erika Irwin 10/20/2022 1 [facility] PLAN - DUAL ELIGIBLE (MEDICARE REPLACEMENT/AD VANTAGE - HMO) AXEL Irwin [id number] Erika Irwin Notes Date Note Type Note Provider Name and Address Organization Details Recorded Time 06/24/2022 text/html chronic Care Management. patient also requesting a referral to Podiatry. Brando Castro MD [address] [place] [address], [phone], [facility] 06/24/2022 15:42:28 10/01/2022 text/html PATIENT PRESENTS TODAY FOR FOLLOW-UP FROM HOSPITAL VISIT. PATIENT WAS RECENTLY ADMITTED TO THE HOSPITAL SECONDARY TO A FALL. IT WAS THOUGHT SHE HAD A SLIGHT STROKE. PATIENT IS BACK AT HOME. Brando Castro MD [address] [place] [address], [phone], [facility] & [place] 10/01/2022 11:59:30 10/22/2022 text/html PATIENT PRESENTS TODAY WITH A 3 DAY HISTORY OF LOW BACK PAIN. SHE STATES THAT SHE FELL AND LANDED ON HER BACK. SHE MAY HAVE HIT HER HEAD. SHE STATES THAT HER HEAD IS NOT PAINFUL HOWEVER SHE CONTINUES TO COMPLAIN OF PAIN TO HER LOWER BACK. PATIENT IS ON WILLING TO GET X-RAYS AT THIS TIME. SHE IS AMBULATING WITH A CANE. Brando Castro MD [address] [place] [address], [phone], [facility] & [place] 10/22/2022 16:18:25 12/30/2022 text/html patient presents today to follow-up on last visit. She continues to complain of low back pain. She does admit to some relief from taking the gabapentin. Her pain is worse at night. She finds it difficult to get in and out of beds and to walk. Patient admits to being confused about which medications she takes. We are unable to ascertain which medicines she is still taking at this time. Patient has been advised to call or come in with her bottles so we can compare an accurate medication list. Brando Castro MD [address] [place] [address], [phone], [facility] & [place] 12/30/2022 16:18:06 06/18/2023 text/html ROS as noted in the HPI patient presents today complaining of headaches, ear pain as well as unsteady on her feet. She has had symptoms for the last several months. Patient admits to not being compliant with her medications especially her insulin. Patient has multiple medical conditions. Brando Castro MD [address] [place] [address], [phone], [facility] & [place] 06/18/2023 15:24:57 OBGyn Episode No OBEpisode recorded.
--- OUTSIDE RECORDS SUMMARY | 2025-08-09 09:44 | XMS_ITS | Clinical Summary ---
Author Organization [facility] Address [address] [place] [address] Phone Care Team Providers Care Telegraph Dispatcher Name Role Phone Unavailable Primary Care Provider [...] patient's age to complete this topic Insurance [facility] Bg Vasquez. KAI Turner [id number] MEDICARE [place] PART A AND B
[2025-08-09 09:55] LABS: Coronavirus 19, PCR Not Detected (NotDetected); Influenza A, PCR Not Detected (NotDetected); Influenza B, PCR Not Detected (NotDetected)
[2025-08-09 10:06] LABS: Hematocrit 37.3 % (37.0-47.0); Hemoglobin 12.3 g/dL (12.2-16.2); Immature Granulocytes % 1.1 %; Mean Corpuscular HGB Conc 33.0 g/dL (31.8-35.4); Mean Corpuscular Hemoglobin 29.9 pg (27.0-31.2); Mean Corpuscular Volume 90.5 fl (81-99); Nucleated Red Blood Cells % 0 %; Platelet Count 295 K/mm3 (142-424); Red Blood Count 4.12 M/mm3 (4.20-5.40); Red Cell Distribution Width-SD 43.5 fL; White Blood Count 7.3 K/mm3 (4.8-10.8)
== END 2025-08-09 23:59 | disposition home or self-care (01) ==
LOC: LAB.DROPOF 09:40
PROVIDERS: PCP Family Medicine; Visit Provider Family Medicine
DX: J18.9 Pneumonia, unspecified organism (principal); R09.89 Other specified symptoms and signs involving the circulatory and respiratory systems
CPT/HCPCS: 85025; 87631